=== PATIENT | female | born 1980 | race Caucasian/White ===

== ENCOUNTER 2020-08-08 09:00 | Outpatient (NON) | payer BC, SELFPAY ==
[2020-08-08 23:00] LABS: SARS-CoV-2 RNA PCR Negative
== END 2020-08-08 09:01 ==
PROVIDERS: PCP Family Medicine; Visit Provider Nurse Practitioner Adult Health
DX: R09.81 Nasal congestion (principal); Z20.822 Contact with and (suspected) exposure to COVID-19
CPT/HCPCS: C9803; U0003; U0005

== ENCOUNTER 2020-11-11 13:29 | Outpatient (CLI) | payer BC, SELFPAY ==
--- NOTE | 2020-11-11 15:04 | WPDPFTINT ---
PFT Procedure Performed PFT Procedure Performed Plethysmography (Lung Vol) Diffusing Cap (DLCO) Flow Vol Loop Spirometry w/o Bronchodil PFT Interpretation This is a pulmonary function test with spirometry, plethysmography and diffusing capacity. The test was performed and results interpreted in accordance with the 2019 and 2005 ATS/ERS Task Force guidelines respectively using the Global Lung Function Initiative-2012 reference equations. Patient demonstrated good effort and cooperation. Reproducibility criteria were met. The quality of the pre bronchodilator spirometry maneuver was Grade A. Findings: Spirometry: The contour the inspiratory and expiratory flow tracing are normal. The FVC is 3.34 L, 84% predicted. The FEV1 is 2.65 L, 84% predicted. The FEV1: FVC ratio 79%. Plethysmography: The total lung capacity is 4.93, 95% predicted. The functional residual capacity is 2.75 L, 96% predicted. The residual volume is 1.40 L, 88% predicted. Diffusing capacity: The absolute diffusion capacity is 19.9, 81% predicted. The diffusing capacity corrected for alveolar volume is 4.27, 90% predicted. Impression: The spirometry is normal without evidence of an obstructive abnormality. The lung volumes are normal. The diffusing capacity is normal. There are no prior studies for comparison
== END 2020-11-11 13:30 | disposition home or self-care (01) ==
PROVIDERS: PCP Family Medicine; Visit Provider Family Medicine
DX: R06.00 Dyspnea, unspecified (principal)
CPT/HCPCS: 94375; 94726; 94729

== ENCOUNTER → 2021-06-23 08:46 | Outpatient (CLI) | payer BC, SELFPAY ==
[2021-06-26 20:22] LABS: SARS-CoV-2 RNA PCR Negative
== END ==
PROVIDERS: PCP Family Medicine; Visit Provider Family Medicine
DX: R68.89 Other general symptoms and signs (principal); Z20.822 Contact with and (suspected) exposure to COVID-19
CPT/HCPCS: C9803; U0003; U0005

== ENCOUNTER → 2021-06-29 09:29 | Outpatient (CLI) | payer BC, SELFPAY ==
[2021-06-29 19:47] LABS: SARS-CoV-2 RNA PCR Negative
== END ==
PROVIDERS: PCP Family Medicine; Visit Provider Family Medicine
DX: R68.89 Other general symptoms and signs (principal); Z20.822 Contact with and (suspected) exposure to COVID-19
CPT/HCPCS: C9803; U0003; U0005

== ENCOUNTER → 2021-07-05 02:13 | Outpatient (CLI) | payer BC, SELFPAY ==
[2021-07-06 02:22] LABS: SARS-CoV-2 RNA PCR Negative
== END ==
PROVIDERS: PCP Family Medicine; Visit Provider Family Medicine
DX: R68.89 Other general symptoms and signs (principal); Z20.822 Contact with and (suspected) exposure to COVID-19
CPT/HCPCS: C9803; U0003; U0005

== ENCOUNTER 2022-05-30 12:12 | Emergency (ER) | payer OTHER, SELFPAY ==
[2022-05-30 12:28] VITALS: BP 125/64; PULSE 81; RESP 16; TEMP 37.1; O2SAT 100
--- NOTE | 2022-05-30 13:08 | ED.URI ---
HPI - URI/Sore Throat General Chief Complaint: Upper Respiratory Infection Stated Complaint: SINUS CONGESTION Time Seen by Provider: 05/30/22 13:03 Source: patient Mode of arrival: ambulatory Limitations: no limitations History of Present Illness HPI Narrative: Patient presents today with a 2.5-3 week history of nasal congestion and drainage with sinus pressure. She has been flushing her sinuses as well as taking ibuprofen without relief. Denies any history of sinus surgeries. She was on a Z-Krishan a few months ago for similar symptoms. Related Data Home Medications Medication Instructions Recorded Confirmed trazodone 100 mg tablet 100 mg PO DAILY 05/30/22 05/30/22 Allergies Allergy/AdvReac Type Severity Reaction Status Date / Time No Known Allergies Allergy Mild Verified 05/30/22 13:09 Review of Systems Review of Systems: CONSTITUTIONAL: Denies body aches, fever, chills, or sweats. EYES: Denies visual changes, redness, or discharge. ENT: Denies rhinorrhea, sore throat, or otalgia.+ nasal congestion, sinus pressure and drainage CARDIOVASCULAR: Denies chest pain, palpitations, or edema. RESPIRATORY: Denies cough or dyspnea. GASTROINTESTINAL: Denies abdominal pain, nausea, vomiting, or diarrhea. GENITOURINARY: Denies dysuria or hematuria. SKIN: Denies rash, itching, or wounds. MUSCULOSKELETAL: Denies back pain, joint pain, or myalgia. NEUROLOGIC: Denies headache, numbness, tingling, or weakness. PSYCH: Denies depression or anxiety. [facility] Family History Family History Father Hypertension Mother Hypertension Grandparent Family history of malignant neoplasm of male breast Social History Social History Smoking status: Light tobacco smoker Second hand tobacco smoke exposure: No Smoking end date: 07/08/13 Alcohol intake: current Comments At time of signature, I have reviewed and agree with nursing past medical, surgical, social and family history unless otherwise noted. Please see nursing chart for further information. There is no relevant family history pertinent to the presenting complaint Exam Narrative: GENERAL: Well-appearing, well-nourished, and in no acute distress. HEAD: Normocephalic, atraumatic. EYES: EOMI. No redness or drainage. Conjunctivae normal. ENT: Mucous membranes pink and moist. Nares congested. Bilateral erythematous and swollen nasal turbinates small purulent discharge. Bilateral frontal and maxillary sinus tenderness. TMs normal bilaterally. Throat normal. Uvula midline. NECK: Normal AROM. Supple. No lymphadenopathy. CHEST: No respiratory distress. Clear to auscultation. HEART: Regular rate and rhythm. No murmur appreciated. Normal peripheral pulses. EXTREMITIES: Normal range of motion. No edema. SKIN: Warm, dry, no rash. Capillary refill normal. Normal skin turgor. NEURO: No focal deficits. Alert and oriented x3. Gait steady. PSYCH: Normal affect. No signs of depression or anxiety. Course Course Level of Care: Express Care Visit Vital Signs Vital signs: Vital Signs Temperature 98.8 F 05/30/22 12:28 Pulse Rate 81 05/30/22 12:28 Respiratory Rate 16 05/30/22 12:28 Blood Pressure 125/64 05/30/22 12:28 Pulse Oximetry 100 05/30/22 12:28 Oxygen Delivery Room Air 05/30/22 12:28 Temperature 98.8 F 05/30/22 12:28 Pulse Rate 81 05/30/22 12:28 Respiratory Rate 16 05/30/22 12:28 Blood Pressure 125/64 05/30/22 12:28 Pulse Oximetry 100 05/30/22 12:28 Oxygen Delivery Room Air 05/30/22 12:28 Reviewed. Pt has been instructed to follow up with her PCP regarding her elevated blood pressure today. MDM - URI/Sore Throat Differential Diagnosis Differential diagnosis: Likely upper respiratory infection, sinusitis and viral infection Critical Care Time Critical Care Time Critical Care Time: No Discharge Plan
== END 2022-05-30 13:15 | disposition home or self-care (01) ==
PROVIDERS: Emergency Provider Nurse Practitioner; PCP Family Medicine
DX: J01.90 Acute sinusitis, unspecified (principal); Z87.891 Personal history of nicotine dependence
CPT/HCPCS: 99213; G0463

== ENCOUNTER 2022-10-01 19:24 | Observation (INO) | payer OTHER, SELFPAY ==
--- NOTE | ~2022-10-01 | US_ITS ---
EXAMINATION: US pelvic complete w TV DATE: 10/01/2022 22:18 INDICATION: Left lower quadrant pain TECHNIQUE: Multiple transabdominal and endovaginal sonographic images of the pelvis were obtained. COMPARISON: None. FINDINGS: The uterus measures 7.8 x 4.2 x 5.1 cm. The endometrial complex measures 13 mm. The right o vary measures 4.0 x 2.7 x 1.9 cm and contains a 1.2 cm corpus luteum. The left ovary measures approxi mately 5.4 x 3.9 x 4.1 cm. There is a complex fluid collection of the left adnexa with cystic and tub ular spaces. There is associated increased vascularity of the left adnexa. There is a small amount of free fluid in the pelvis. IMPRESSION: 1. Findings suspicious for left tubo-ovarian abscess. FURNITURE ASSEMBLER AND INSTALLER evaluation is recommended. Reviewed, dictated and finalized at location F. IMPRESSION: 1. Findings suspicious for left tubo-ovarian abscess. FURNITURE ASSEMBLER AND INSTALLER evaluation is recomme nded.
--- NOTE | ~2022-10-01 | CT_ITS ---
EXAMINATION: CT abdomen pelvis w con INDICATION: Left lower quadrant pain TECHNIQUE: Computed tomographic images of the abdomen and pelvis were obtained after the administrati on of 100 cc of Omnipaque 350 intravenous contrast. The dose-length product (DLP) was 775.34 mGy-cm. Automated exposure control and iterative reconstruction technique were employed. COMPARISON: None available FINDINGS: The lung bases are clear. The heart size is normal. The liver, spleen, pancreas, gallbladde r, and adrenal glands are normal. There is a 2 mm nonobstructing stone of the left kidney. The right kidney is unremarkable. There is a complex cystic collection in the left adnexa measuring approximate ly 5.1 x 3.3 cm. A corpus luteum is noted in the right ovary. There is a small amount of free fluid t racking into the left retroperitoneum. There is also a small volume of pelvic ascites. No pathologica lly enlarged abdominal or pelvic lymph nodes are identified. No free intraperitoneal gas or evidence of bowel obstruction. A large volume of colonic stool is present. IMPRESSION: 1. CT findings suspicious for tubo-ovarian abscess on the left. Ultrasound results pending. RAILROAD CAR REPAIR SUPERVISOR evalu ation is recommended. Reviewed, dictated and finalized at location F. IMPRESSION: 1. CT findings suspicious for tubo-ovarian abscess on the left. Ultrasound resu lts pending. RAILROAD CAR REPAIR SUPERVISOR evaluation is recommended.
[2022-10-01 21:04] VITALS: BP 131/91; PULSE 84; RESP 20; O2SAT 98
--- NOTE | 2022-10-01 21:34 | ED.ABDPAIN ---
HPI - Abdominal Pain General Chief Complaint: Abdominal Pain Stated Complaint: lower abdominal pain and rectal pain Time Seen by Provider: 10/01/22 21:05 History of Present Illness HPI narrative: 41-year-old female reports for evaluation of suprapubic and left lower quadrant pain x3 days, and rectal pain that started today. Patient reports 3 days ago she experienced intermittent sharp left lower quadrant pain. She reported the sharp pains subsided, but she continued to have a dull ache in her LLQ and suprapubic region. States she had an episode of sharp pain came back today that caused her to double over, then subsided again, but she continues to still have a dull ache. She is unable to tell me how long the sharp pain lasted because she was unaware of time due to intense pain, but it felt like forever. She reports nausea and body aches that started today and 1 episode of diarrhea yesterday. She reports intermittent sharp rectal pains that started today as well, worse with sitting. She has not had a BM today, therefore not sure if pain is worse with BM. Denies urinary complaints, back pain, rectal bleeding, melena, vomiting, vaginal discharge, vaginal bleeding, CP, SOB, fever, chills, concern for STDs. No history of abdominal surgeries other than c section. LMP ~21 days ago. Related Data Home Medications Medication Instructions Recorded Confirmed trazodone 100 mg tablet 100 mg PO DAILY 05/30/22 10/02/22 Allergies Allergy/AdvReac Type Severity Reaction Status Date / Time No Known Allergies Allergy Mild Verified 10/01/22 19:24 Review of Systems Review of Systems: CONSTITUTIONAL: Denies fever, chills EYES: Denies visual changes, redness, or discharge. ENT: Denies rhinorrhea, congestion, sore throat, or otalgia. CARDIOVASCULAR: Denies chest pain, palpitations, or edema. RESPIRATORY: Denies cough or dyspnea. GASTROINTESTINAL: See HPI GENITOURINARY: Denies dysuria or hematuria. SKIN: Denies rash or itching. MUSCULOSKELETAL: Denies back pain, joint pain, or myalgia. NEUROLOGIC: Denies headache, numbness, dizziness, or weakness. PSYCHIATRIC: Denies anxiety or depression. [facility] Family History Family History Father Hypertension Mother Hypertension Grandparent Family history of malignant neoplasm of male breast Social History Social History Smoking packs per day: 0.5 Smoking cigarettes per day: 10.0 Years smoked: 20 Smoking pack-years: 10.00 Smoking status: Current every day smoker Tobacco type: cigarettes Second hand tobacco smoke exposure: No Smoking end date: 07/08/13 Alcohol intake: never Substance use: never Lack of Transportation: No Lack of Food: Never True Current Housing: I Have Housing Concerned About Future Housing: No Difficulty Paying Gas/Electric Bills: No Difficulty Paying for Meds: No Currently Unemployed: No Education: Associate Degree Difficulty w/ Childcare or Family Care: No Spiritual care concerns: No Exam Narrative: GENERAL: Well-appearing, well-nourished, and in no acute distress. Patient resting comfortably in the bed. HEAD: Normocephalic, atraumatic. EYES: PERRLA and EOMI. ENT: Nares clear, no rhinorrhea or epistaxis. Mucous membranes moist. Oropharynx without tonsillar hypertrophy exudate or other lesions. NECK: Supple. No adenopathy or masses. CHEST: Clear to auscultation. No respiratory distress. No wheezes rales or rhonchi HEART: Regular rate and rhythm. No murmur heard. Normal peripheral pulses. ABDOMEN: Soft, nondistended, normal active bowel sounds. Tenderness with deep palpation to left lower quadrant. Tenderness and guarding to suprapubic region with deep palpation. Negative Tapia's, McBurney's, psoas sign, heeltap. No CVA tenderness. Rectal exam w/o gross hematuria. No internal or external hemorrhoids appreciated. No areas of f
[2022-10-01 21:39] LABS: Basophils Absolute Auto 0.1 K/mm3 (0.0-0.1); Basophils Percent Auto 0.4 % (0.2-1.2); Eosinophils Absolute Auto 0.2 K/mm3 (0-0.3); Eosinophils Percent Auto 1.5 % (0-4.4); Hematocrit 40.3 % (37.0-47.0); Hemoglobin 13.6 g/dL (12.0-15.0); Immature Granulocyte Absolute 0.06 K/mm3 (0.00-0.031); Immature Granulocyte Percent A 0.5 % (0-0.5); Lymphocytes Absolute Auto 2.34 K/mm3 (0.9-3.2); Lymphocytes Percent Auto 18.2 % (18.3-44.2); Mean Corpuscular HGB Conc 33.7 g/dl (32-36); Mean Corpuscular Hemoglobin 32.5 pg (26-34); Mean Corpuscular Volume 96.2 fl (80-100); Mean Platelet Volume 9.7 fl (7.4-10.4); Monocytes Absolute Auto 0.9 K/mm3 (0.1-0.6); Monocytes Percent Auto 7.1 % (2.6-8.5); Neutrophils Absolute Auto 9.3 K/mm3 (1.3-6.7); Neutrophils Percent Auto 72.3 % (45.5-73.1); Platelet Count Result 255 k/mm3 (150-375); Red Blood Count 4.19 M/mm3 (4.2-5.4); Red Cell Distribution Width 11.9 % (11.5-14.5); White Blood Count 12.9 K/mm3 (4.5-10.0)
[2022-10-01 21:45] LABS: Alanine Aminotransferase 41 U/L (6-35); Albumin Level 3.9 g/dL (3.5-5.1); Alkaline Phosphatase 76 U/L (38-126); Anion Gap 6 mmol/L (8-16); Aspartate Amino Transferase 27 U/L (14-36); Bilirubin,Total 0.5 mg/dL (0.2-1.3); Blood Urea Nitrogen 12 mg/dL (7-17); Calcium 8.2 mg/dL (8.4-10.2); Carbon Dioxide 27 mmol/L (22-30); Chloride 103 mmol/L (98-107); Estimated CRCL calculation 101 ml/min; Estimated Glomerular Filt Rate > 60; Glucose 85 mg/dL (65-110); Lipase 32 U/L (23-300); Potassium 4.1 mmol/L (3.4-5.0); Sodium 136 mmol/L (137-145)
[2022-10-01 21:58] LABS: Appearance Urine Cloudy (Clear); Bacteria Urine 2+ /hpf; Bilirubin Urine 1+ (Negative); Blood Urine Negative (Negative); Color Urine Dark Yellow (Yellow); Glucose Urine UA Negative (Negative); Ketones Urine Trace mg/dL (Negative); Leukocyte Esterase Ur Trace LEU/UL (Negative); Mucus Urine Present /lpf; Need Manual Microscopic Reviewed; Nitrate Urine Negative (Negative); Non Pathogenic Casts 0-2; Protein Urine 1+ mg/dL (Negative); Squamous Epithelial Cell Urine Few /hpf (Few); WBC Urine 0-5 /hpf
[2022-10-01 21:59] LABS: Add Urine Microscopic? YES; Specific Grav Ur 1.044 (1.001-1.035)
--- NOTE | 2022-10-01 22:14 | PC.NURSE ---
Pt reports intermittent LLQ pain that started as mild on Saturday and has progressively gotten worse over the weekend. She also developed constant, sharp rectal pain. Pt reports her last bowel movement was yesterday and it was diarrhea. She denies any blood in her stool. +Nausea but no vomiting. She also c/o bodyaches. Denies known fevers, urinary symptoms, or vaginal discharge.
[2022-10-01 22:32] VITALS: BP 150/77; PULSE 88; RESP 16; O2SAT 100
[2022-10-01] MEDS: ONDANSETRON INJ 4 MG/2 ML VIAL IV PUSH (22:33)
[2022-10-01] MEDS: SODIUM CHLORIDE 0.9% IV 1,000 ML 999 ML IV CONT (22:33)
[2022-10-01] MEDS: KETOROLAC 30 MG/ML VIAL (*BKC) IV PUSH (22:34)
[2022-10-01 22:54] LABS: Lactic Acid Reflex 0.6 mmol/L (0.7-2.0)
[2022-10-02] MEDS: metroNIDAZOLE 250 MG TABLET 500 MG PO ×3 (00:22→21:06)
[2022-10-02] MEDS: DOXYCYCLINE HYCLATE 100 MG TABLET PO ×3 (00:22→21:06)
[2022-10-02] MEDS: cefoTEtan DISODIUM INJ 2 GM in DEXTROSE 5% IN WATER 50 ML IVPB ×3 (00:24→21:07)
[2022-10-02 00:50] VITALS: BP 133/82; PULSE 84; RESP 18; O2SAT 100
[2022-10-02] MEDS: ONDANSETRON INJ 4 MG/2 ML VIAL IV PUSH ×3 (00:59→20:02)
--- NOTE | 2022-10-02 01:29 | ADMGEN ---
This patient, Kimber Brown, was admitted to [facility] Surg Room 300-01. Patient/family oriented to hospital policies and general routines including ID bracelet, bed and alarms, visiting hours, pain management, procedures, bathroom and other care routines, personal items, smoking policy, room service/diet, and visiting hours. Information on how to activate the Rapid Response Team has been discussed. Patient/Family are encouraged to report perceived risks to care and to ask questions if they do not understand what they are told or what they should do.
[2022-10-02 01:52] VITALS: BP 129/83; PULSE 79; RESP 16; TEMP 36.6; O2SAT 100
[2022-10-02 02:30] VITALS: BMI 30.9
[2022-10-02 04:39] VITALS: BP 100/49; PULSE 74; RESP 16; TEMP 36.7; O2SAT 98
[2022-10-02] MEDS: KETOROLAC 30 MG/ML VIAL (*BKC) IV PUSH (04:55)
[2022-10-02 14:00] VITALS: BP 108/68; PULSE 74; RESP 20; TEMP 36.4; O2SAT 99
[2022-10-02] MEDS: NICOTINE (*PBKC) 14 MG PATCH 1 PATCH TRANSDERM (14:33)
[2022-10-02] MEDS: ACETAMINOPHEN 500 MG TABLET PO (14:34)
[2022-10-02] MEDS: traZODone HCL 50 MG TABLET 100 MG PO (21:06)
[2022-10-02 21:50] VITALS: BP 127/68; PULSE 72; RESP 16; TEMP 36.1; O2SAT 100
--- NOTE | 2022-10-03 03:09 | PM.IMHP ---
H&P: HPI History of Present Illness Date/Time: 10/02/22 1000 Chief Complaint: Pelvic pain Narrative: She presented to ED yesterday with complaints of increasing pelvic pain that had started a few days. She had a similar pain in the area a few months ago that lasted a few hours. In ED CT and pelvic ultrasound showed possible TOA. She denies any history of STI or recent instrumentation. She denies abnormal vaginal discharge or odor. No history of PID or chl/gonorrhea. She has a history of vaginal ph issues. She was nauseous in ED and required antiemetic which improved symptoms. She states her pelvic pressure and rectal pressure are better after antibiotics started. She does have a headache and history of headaches. Review of Systems Review of Systems: All systems reviewed & are unremarkable except as noted in HPI and below Constitutional: Constitutional: Reports no additional constitutional complaints Eyes: Eyes: Reports no additional eye complaints Cardiovascular: Cardiovascular: Reports no additional cardiovascular complaints Respiratory: Respiratory: Reports no additional respiratory complaints Gastrointestinal: Gastrointestinal: Reports no additional gastrointestinal complaints Genitourinary: Genitourinary: Reports no additional female genitourinary complaints and Reports as per HPI Integumentary/Breasts: Skin/Breast: Reports system reviewed and no additional complaints, except as docu Neurologic: Reports system reviewed and no additional complaints, except as documented Psychiatric: Psychiatric: Reports no additional psychiatric complaints Hematologic/Lymphatic: Hematologic/Lymphatic: Reports no additional hematologic/lymphatic complaints [facility] Family History Family History Father Hypertension Mother Hypertension Grandparent Family history of malignant neoplasm of male breast Social History Social History Smoking packs per day: 0.5 Smoking cigarettes per day: 10.0 Years smoked: 20 Smoking pack-years: 10.00 Smoking status: Current every day smoker Tobacco type: cigarettes Second hand tobacco smoke exposure: No Smoking end date: 07/08/13 Alcohol intake: never Substance use: never Lack of Transportation: No Lack of Food: Never True Current Housing: I Have Housing Concerned About Future Housing: No Difficulty Paying Gas/Electric Bills: No Difficulty Paying for Meds: No Currently Unemployed: No Education: Associate Degree Difficulty w/ Childcare or Family Care: No Spiritual care concerns: No Meds Home Medications and Allergies Home Medications Medication Instructions Recorded Confirmed Type trazodone 100 mg tablet 100 mg PO DAILY 05/30/22 10/02/22 History Allergies Allergy/AdvReac Type Severity Reaction Status Date / Time No Known Allergies Allergy Mild Verified 10/01/22 19:24 Vital Signs Vital Signs - 24 hr 10/02/22 04:39 10/02/22 09:18 10/02/22 14:00 Temperature 98.1 F 97.6 F Pulse Rate 74 74 Respiratory Rate 16 20 Blood Pressure 100/49 L 108/68 Pulse Oximetry 98 99 Oxygen Delivery Room Air 10/02/22 21:50 Temperature 97.0 F L Pulse Rate 72 Respiratory Rate 16 Blood Pressure 127/68 Pulse Oximetry 100 Oxygen Delivery Exam Const: General: comfortable and no acute distress Orientation/consciousness: oriented to person, oriented to place and oriented to time Eyes: General: appearance normal, both eyes and all related structures Neck: Neck: normal visual inspection Resp: Effort & Inspection: normal respiratory effort GI: Inspection: normal to inspection Other: minimal lower abdominal tenderness, no guarding or rebound Skin: General skin exam: normal color Neuro: General: oriented to person, oriented to place and oriented to time Psych: Appearance: grossly normal Assessment and Plan Assess
[2022-10-03 06:18] LABS: Hematocrit 36.2 % (37.0-47.0); Hemoglobin 12.4 g/dL (12.0-15.0); Mean Corpuscular HGB Conc 34.3 g/dl (32-36); Mean Corpuscular Hemoglobin 32.9 pg (26-34); Mean Platelet Volume 9.9 fl (7.4-10.4); Platelet Count Result 250 k/mm3 (150-375); Red Blood Count 3.77 M/mm3 (4.2-5.4); Red Cell Distribution Width 11.6 % (11.5-14.5); White Blood Count 9.4 K/mm3 (4.5-10.0)
[2022-10-03 06:31] VITALS: BP 98/62; PULSE 60; RESP 16; TEMP 36.1; O2SAT 100
[2022-10-03] MEDS: cefoTEtan DISODIUM INJ 2 GM in DEXTROSE 5% IN WATER 50 ML IVPB (08:10)
[2022-10-03] MEDS: DOXYCYCLINE HYCLATE 100 MG TABLET PO (08:11)
[2022-10-03] MEDS: metroNIDAZOLE 250 MG TABLET 500 MG PO (08:11)
[2022-10-03] MEDS: NICOTINE (*PBKC) 14 MG PATCH 1 PATCH TRANSDERM (08:11)
[2022-10-03] MEDS: ACETAMINOPHEN 500 MG TABLET PO (08:19)
[2022-10-03] MEDS: ONDANSETRON INJ 4 MG/2 ML VIAL IV PUSH (08:20)
--- NOTE | 2022-10-03 08:51 | PM.GYNPNOP ---
PHARMACEUTICAL SPECIALTY REPRESENTATIVE - A/P Assessment and plan (1) Left tubo-ovarian abscess: Code(s): N70.93 - Salpingitis and oophoritis, unspecified Status: Acute Assessment and Plan: clinically improved. Minimal pain. Will discharge home on antibiotics. Will also send home with tramadol for pain and Zofran. She was instructed to follow up to call for an appointment for 3 week follow-up. Call if she has any increasing pain or fevers. Time Spent With Patient Time: Total time spent is greater than 50% in coordination of care (as documented) at patient's floor/unit and/or counseling patient: Time with patient: less than 15 minutes PHARMACEUTICAL SPECIALTY REPRESENTATIVE- PN:Subj Post-Op Subjective Date/time seen: 10/03/22 08:51 Interval history: She states her pain is 1/10. She has been intermittetly nauseated. She is tolerating regular foods. She does have a history of reflux. Exam Const: General: no acute distress Resp: Effort & Inspection: normal respiratory effort GI: Inspection: normal to inspection Other: Soft mild lower abdominal tenderness left greater than right no guarding no rebound Neuro: General: oriented to person, oriented to place and oriented to time Extrem: General: normal to inspection Psych: Appearance: grossly normal PHARMACEUTICAL SPECIALTY REPRESENTATIVE - PN: Obj Data Vital Signs Vital Signs: Vital Signs - 24 hr 10/02/22 09:18 10/02/22 14:00 10/02/22 21:50 Temperature 97.6 F 97.0 F L Pulse Rate 74 72 Respiratory Rate 20 16 Blood Pressure 108/68 127/68 Pulse Oximetry 99 100 Oxygen Delivery Room Air 10/03/22 06:31 Temperature 97.0 F L Pulse Rate 60 Respiratory Rate 16 Blood Pressure 98/62 L Pulse Oximetry 100 Oxygen Delivery Intake/Output Intake/Output: Intake & Output 09/30/22 10/01/22 10/02/22 10/03/22 23:59 23:59 23:59 23:59 Intake Total 1000 1475 Balance 1000 1475 Meds/Results Medications: Active Medications Generic Name Dose Route Start Last Admin Trade Name Freq PRN Reason Stop Dose Admin Acetaminophen 500 mg 10/02/22 14:03 10/03/22 08:19 Acetaminophen 500 Mg Tablet PO 500 mg Q4H PRN Administration Mild Pain (1-3) or Fever Doxycycline Hyclate 100 mg 10/02/22 09:00 10/03/22 08:11 Doxycycline Hyclate 100 Mg Tablet PO 100 mg Q12HR ASHLEY Administration Cefotetan Disodium 2 gm/ 50 mls @ 100 mls/hr 10/02/22 09:00 10/03/22 08:10 Dextrose IVPB 100 mls/hr Q12HR ASHLEY Administration Ketorolac Tromethamine 10 mg 10/02/22 14:06 Ketorolac 10 Mg Tablet PO Q6H PRN Pain Rated 4-6 Metronidazole 500 mg 10/02/22 09:00 10/03/22 08:11 Metronidazole 250 Mg Tablet PO 500 mg Q12HR ASHLEY Administration Morphine Sulfate 4 mg 10/01/22 23:56 Morphine Sulfate (*Crx) 4 Mg/Ml Inj IV PUSH Q2H PRN Pain Rated 7-10 Nicotine 1 patch 10/02/22 14:10 10/03/22 08:11 Nicotine (*Pbkc) 14 Mg Patch TRANSDERM 1 patch QAM ASHLEY Administration Ondansetron HCl 4 mg 10/01/22 23:56 10/03/22 08:20 Ondansetron Inj 4 Mg/2 Ml Vial IV PUSH 4 mg Q4H PRN Administration Nausea Trazodone HCl 100 mg 10/02/22 21:00 10/02/22 21:06 Trazodone Hcl 50 Mg Tablet PO 100 mg HS ASHLEY Administration Radiology Results: ITS Impressions Abdomen/Pelvis CT 10/01/22 22:25 IMPRESSION: 1. CT findings suspicious for tubo-ovarian abscess on the left. Ultrasound results pending. PHARMACEUTICAL SPECIALTY REPRESENTATIVE evaluation is recommended. Pelvic/Transvag US 10/01/22 22:30 IMPRESSION: 1. Findings suspicious for left tubo-ovarian abscess. PHARMACEUTICAL SPECIALTY REPRESENTATIVE evaluation is recommended. Labs 10/03/22 05:15 10/01/22 21:31 Labs: Laboratory Results - last 24 hr 10/01/22 10/03/22 23:49 05:15 WBC 9.4 RBC 3.77 L Hgb 12.4 Hct 36.2 L MCV 96.0 MCH 32.9 MCHC 34.3 RDW 11.6 Plt Count 250 MPV 9.9 Trichomonas Direct ID Cancelled
--- NOTE | 2022-10-15 09:19 | PM.DS ---
DS: Admitting Diagnosis Discharge Date 10/03/22 Admitting Diagnosis Pelvic pain Tuboovarian abscess DS: Discharge Diagnosis Discharge Diagnosis (1) Pelvic pain: Code(s): R10.2 - Pelvic and perineal pain Status: Acute (2) Left tubo-ovarian abscess: Code(s): N70.93 - Salpingitis and oophoritis, unspecified Status: Acute DS: Summary Hospital Course Reason for hospitalization: Pelvic pain Hospital Course: She was admitted from the ED due to pelvic pain. She had an elevated WBC and imaging findings consistent with tuboovarian abscess. She was admitted and had IV and oral antibiotics for 48 hours. She was clinically improved with minimal abdominal pain and afebrile and was tolerating regular diet and the antibiotics. She was discharged to home on oral antibiotics. She was sent home on oral analesic medication also. Status at Discharge Functional status at discharge: independent ambulation Time Spent with Patient Time attestation: Total time spent providing and/or coordinating discharge services: Exam Const: General: comfortable and no acute distress Eyes: General: appearance normal, both eyes and all related structures Resp: Effort & Inspection: normal respiratory effort GI: Inspection: normal to inspection Other: soft, no guarding or rebound, minimal lower abdominal suprapubic tenderness Skin: General skin exam: normal color Neuro: General: oriented to person, oriented to place and oriented to time Extrem: General: normal to inspection Psych: Appearance: grossly normal Discharge Plan Discharge Attending physician on discharge: Castro Buckley Consulting providers: Gail Peng ; Damián Murphy Discharging Clinician: Castro Buckley Anticipated Discharge Date/Time: 10/03/22 08:50 Patient Disposition: Home, Self-Care Activity: may shower, no straining and pelvic rest Diet: regular Patient Instructions: Antibiotic Form, How to Stop Smoking (DC), Cigarette Smoking and Your Health (GEN) Stand Alone Forms: General Discharge Information Follow-up/Referrals: Castro Buckley MD [Physician] - 3 Weeks Discharge Medications: New metronidazole 250 mg Tablet 500 mg PO Q12HR Qty: 26 0RF doxycycline hyclate 100 mg Tablet 100 mg PO Q12HR Qty: 26 0RF tramadol 50 mg tablet 50 mg PO Q6H PRN (Reason: pain) Qty: 20 0RF ondansetron 4 mg Tablet,Disintegrating 4 mg PO Q6H PRN (Reason: Nausea And Vomiting) Qty: 20 0RF Continued trazodone 100 mg tablet 100 mg PO DAILY Date of admission: 10/01/22 23:56 Primary Care Provider: Naina,Michael Flores Admitting Provider: Castro Buckley Attending physician on admission: Castro Buckley Condition: Stable [facility] Discharge Billing [facility] Discharge Hospital Discharge: [id number] Hosp D/C 30 Min
== END 2022-10-03 12:05 | disposition home or self-care (01) ==
LOC: ANHED 23:55 → ANH3MEDSUR 10-02 00:35
PROVIDERS: Emergency Medicine; Admitting Provider Obstetrics & Gynecology; Emergency Provider Physician Assistant; PCP Family Medicine; Visit Provider Obstetrics & Gynecology
DX: N70.93 Salpingitis and oophoritis, unspecified (principal); R10.32 Left lower quadrant pain; R10.2 Pelvic and perineal pain; K62.89 Other specified diseases of anus and rectum; Z20.822 Contact with and (suspected) exposure to COVID-19; R11.0 Nausea; R19.7 Diarrhea, unspecified; F17.210 Nicotine dependence, cigarettes, uncomplicated; Z79.899 Other long term (current) drug therapy
CPT/HCPCS: 36415; 74177; 76830; 76856; 80053; 81001; 81025; 83605; 83690; 85025; 85027; 87040; 87070; 87491; 87591; 96361; 96365; 96367; 96374; 96375; 96376; 99285; A9270; G0378; J1885; J2405; J7030; Q9967

== ENCOUNTER → 2022-11-07 15:09 | Outpatient (CLI) | payer OTHER, SELFPAY ==
--- NOTE | ~2022-11-07 | US_ITS ---
Pelvic ultrasound. Clinical History: Salpingitis, oophoritis COMPARISON: 10/01/2022 Technique: Realtime transabdominal and transvaginal scanning of the pelvis was performed. Color flow Doppler and Doppler spectral analysis were performed. Findings: The uterus is anteverted, and measures 7.4 x 4.0 x 3.9 cm. The endometrial stripe has a th ickness of 6 mm. No focal mass is identified. The right ovary measures 2.4 x 1.5 x 1.7 cm. Small right ovarian cyst measures 1.5 cm in diameter. The left ovary measures 3.1 x 4.6 x 2.8 cm. Left ovarian cyst measures 2.9 x 2.2 x 2.5 cm, with diffu se low-level internal echoes. Possible small left hydrosalpinx. There is no evidence of free fluid in the cul de sac. Impression: Probable small left hydrosalpinx and 2.9 cm left ovarian cystic structure. Findings overall are decre ased in size/extent from prior exam, consistent with improving tubo-ovarian abscess. Reviewed, dictated and finalized at location . Impression: Probable small left hydrosalpinx and 2.9 cm left ovarian cystic structure. Find ings overall are decreased in size/extent from prior exam, consistent with impr oving tubo-ovarian abscess.
== END ==
PROVIDERS: PCP Family Medicine; Visit Provider Obstetrics & Gynecology
DX: N70.93 Salpingitis and oophoritis, unspecified (principal)
CPT/HCPCS: 76830; 76856

== ENCOUNTER 2022-12-17 08:06 | Emergency (ER) | payer OTHER, SELFPAY ==
--- NOTE | 2022-12-17 08:15 | ED.SKABFB ---
HPI - Skin/Abscess/Foreign Bdy General Chief complaint: Skin/Abscess/Foreign Body Stated complaint: infected cyst Time Seen by Provider: 12/17/22 08:15 Source: patient, RN notes reviewed and old records reviewed Mode of arrival: ambulatory Limitations: no limitations History of Present Illness HPI narrative: 41-year-old female presents to the [facility] with concerns an infected cyst to the abdomen. patient states that her friend tried to pop it last week, states it did get lip but better but over the last day or so has become red, more painful. She is unable to pop it herself. Onset (ago): week(s) (1) Related Data Home Medications Medication Instructions Recorded Confirmed trazodone 100 mg tablet 100 mg PO DAILY 05/30/22 12/17/22 famotidine 20 mg tablet 20 mg PO DAILY 12/17/22 12/17/22 Allergies Allergy/AdvReac Type Severity Reaction Status Date / Time No Known Allergies Allergy Mild Verified 12/17/22 08:26 Review of Systems Review of Systems: All systems reviewed & are unremarkable except as noted in HPI and below Constitutional: Constitutional: Reports no additional constitutional complaints Eyes: Eyes: Reports no additional eye complaints ENT: Reports system reviewed and no additional complaints, except as documented Cardiovascular: Cardiovascular: Reports no additional cardiovascular complaints, Denies chest pain and Denies dyspnea Respiratory: Respiratory: Reports no additional respiratory complaints, Denies chest congestion, Denies cough and Denies dyspnea Gastrointestinal: Gastrointestinal: Reports no additional gastrointestinal complaints, Denies abdominal pain, Denies nausea and Denies vomiting Musculoskeletal: Musculoskeletal: Reports no additional musculoskeletal complaints Integumentary/Breasts: Skin/Breast: Reports as per HPI, Reports furuncle and Reports erythema Neurologic: Reports system reviewed and no additional complaints, except as documented Psychiatric: Psychiatric: Reports no additional psychiatric complaints Allergic/Immunologic: Allergic/Immunologic: Reports no additional allergic/immunologic complaints [facility] Family History Family History Father Hypertension Mother Hypertension Grandparent Family history of malignant neoplasm of male breast Social History Social History Smoking packs per day: 0.5 Smoking cigarettes per day: 10.0 Years smoked: 20 Smoking pack-years: 10.00 Smoking status: Current every day smoker Tobacco type: cigarettes Second hand tobacco smoke exposure: No Alcohol intake: never Substance use: never Lack of Transportation: No Lack of Food: Never True Current Housing: I Have Housing Concerned About Future Housing: No Difficulty Paying Gas/Electric Bills: No Difficulty Paying for Meds: No Currently Unemployed: No Education: Associate Degree Difficulty w/ Childcare or Family Care: No Spiritual care concerns: No Comments At the time of my signature, I reviewed and agree with the nursing past medical, surgical, social, and family history. There is no relevant family history pertinent to the patient complaint. Exam Const: General: cooperative, healthy appearing, comfortable, no acute distress, well developed, alert and well nourished Nutritional Appearance: well nourished Orientation/consciousness: patient oriented x3 Limitations: no limitations HENMT: Head: normal to inspection Ears: hearing grossly normal bilaterally and external ears normal Face/Nose/Sinus: Normal external nose present, Normal nares present, Normal nasal mucous membranes and turbinates present and normal facial exam Face and sinus: normal facial exam Eyes: General: appearance normal, both eyes and all related structures Alignment and Position: alignment normal Periorbital: periorbital findings normal Pupils: Equal, round and re
[2022-12-17 08:16] VITALS: BP 115/59; PULSE 84; RESP 16; TEMP 36.7; O2SAT 100
== END 2022-12-17 08:44 | disposition home or self-care (01) ==
PROVIDERS: Emergency Provider Nurse Practitioner; PCP Family Medicine
DX: L02.211 Cutaneous abscess of abdominal wall (principal); F17.210 Nicotine dependence, cigarettes, uncomplicated
CPT/HCPCS: 10060; 87070; 87075; 87205; 99213; G0463

== ENCOUNTER 2023-01-13 09:49 | Inpatient (IN) | payer OTHER, SELFPAY ==
--- NOTE | ~2023-01-13 | CT_ITS ---
EXAMINATION: CT abdomen pelvis w con DATE: 01/13/2023 10:59 INDICATION: Left lower quadrant abdominal pain. TECHNIQUE: Computed tomography (CT) of the abdomen and pelvis was performed with 100 mL Omnipaque 350 intravenous contrast. Automated exposure control and iterative reconstruction technique were employe d. The dose-length product was 799.24 mGy-cm. COMPARISON: CT abdomen and pelvis 10/01/2022 FINDINGS: The visualized portions of the lung bases demonstrate mild atelectasis. No pleural effusion . The heart size is normal. No pericardial effusion. The liver, gallbladder, spleen, pancreas, adrena l glands, and kidneys are normal. There is left-sided hydrosalpinx. There is a 5.6 x 3.9 cm left tubo -ovarian abscess. There are no dilated loops of bowel. The appendix is normal. There are no pathologi av enlarged lymph nodes. There is no free intraperitoneal fluid. There is mild lumbar spondylosis. IMPRESSION: 1. Worsened left-sided tubo-ovarian abscess. Reviewed, dictated and finalized at location A.
--- NOTE | ~2023-01-13 | CT_ITS ---
EXAMINATION: CTA chest PE protocol DATE: 01/16/2023 05:01 INDICATION: Shortness of breath. TECHNIQUE: Computed tomography angiography (CTA) of the chest was performed with 100 mL Omnipaque-350 intravenous contrast timed to evaluate the pulmonary arteries. Coronal maximum intensity projection 3D-reconstructions were created by the technologist. Automated exposure control and iterative reconst ruction technique were employed. The dose-length product was 272.74 mGy-cm. COMPARISON: CT abdomen and pelvis 01/13/2023 FINDINGS: The lungs demonstrate mild atelectasis. No pleural effusion. The heart size is normal. No p ericardial effusion. There is no pulmonary embolus. There is free intraperitoneal gas, consistent wit h recent surgery. There is mild thoracic spondylosis. IMPRESSION: 1. No pulmonary embolus. Reviewed, dictated and finalized at location E. IMPRESSION: 1. No pulmonary embolus.
[2023-01-13 10:01] VITALS: BP 146/80; PULSE 84; RESP 16; TEMP 36.5; O2SAT 100
[2023-01-13] MEDS: SODIUM CHLORIDE 0.9% IV 1,000 ML 999 ML IV CONT (10:17)
[2023-01-13] MEDS: ONDANSETRON INJ 4 MG/2 ML VIAL IV PUSH ×2 (10:18→19:13)
--- NOTE | 2023-01-13 10:18 | ED.ABDPAIN ---
HPI - Abdominal Pain General Chief Complaint: Abdominal Pain <MERLINE Hurley Last Filed: 01/13/23 19:49> Stated Complaint: abdominal pain <MERLINE Hurley Last Filed: 01/13/23 19:49> Time Seen by Provider: 01/13/23 10:01 <MERLINE Hurley Last Filed: 01/13/23 19:49> History of Present Illness HPI narrative: 42-year-old female reports for evaluation of left upper and lower abdominal pain since yesterday. Patient states the symptoms started with her feeling a pulse in her abdomen, then she began developing a sharp pain in the left side of her abdomen which has been persistent since. She reports nausea but denies emesis. Last bowel movement 2 days ago was normal. She denies chest pain, shortness of breath, fever, back pain, dysuria or hematuria, cough, vaginal discharge or bleeding, concern for STDs. LMP 34 weeks ago. <MERLINE Hurley Last Filed: 01/13/23 19:49> Related Data Home Medications: Home Medications Medication Instructions Recorded Confirmed trazodone 100 mg tablet 100 mg PO DAILY 05/30/22 12/17/22 famotidine 20 mg tablet 20 mg PO DAILY 12/17/22 12/17/22 <MERLINE Hurley Last Filed: 01/13/23 19:49> Allergies/Adverse Reactions: Allergies Allergy/AdvReac Type Severity Reaction Status Date / Time No Known Allergies Allergy Mild Verified 01/13/23 09:49 <MERLINE Hurley Last Filed: 01/13/23 19:49> Review of Systems Review of Systems: CONSTITUTIONAL: Denies fever, chills EYES: Denies visual changes, redness, or discharge. ENT: Denies rhinorrhea, congestion, sore throat, or otalgia. CARDIOVASCULAR: Denies chest pain, palpitations, or edema. RESPIRATORY: Denies cough or dyspnea. GASTROINTESTINAL: See HPI GENITOURINARY: Denies dysuria or hematuria. SKIN: Denies rash or itching. MUSCULOSKELETAL: Denies back pain, joint pain, or myalgia. NEUROLOGIC: Denies headache, numbness, dizziness, or weakness. PSYCHIATRIC: Denies anxiety or depression. <Gail Peng PA-C - Last Filed: 01/13/23 19:49> [facility] Surgical History Surgical History: Surgical History (Updated 01/16/23 @ 10:03 by Castro Buckley MD) History of section <Gail Peng PA-C - Last Filed: 01/13/23 19:49> Family History Family History: Family History Father Hypertension Mother Hypertension Grandparent Family history of malignant neoplasm of male breast <Gail Peng PA-C - Last Filed: 01/13/23 19:49> Social History Social History: Social History Smoking packs per day: 0.5 Smoking cigarettes per day: 10.0 Years smoked: 20 Smoking pack-years: 10.00 Smoking status: Current every day smoker Tobacco type: cigarettes Second hand tobacco smoke exposure: No Alcohol intake: never Substance use: never Lack of Transportation: No Lack of Food: Never True Current Housing: I Have Housing Concerned About Future Housing: No Difficulty Paying Gas/Electric Bills: No Difficulty Paying for Meds: No Currently Unemployed: No Education: Associate Degree Difficulty w/ Childcare or Family Care: No Spiritual care concerns: No <Gail Peng PA-C - Last Filed: 01/13/23 19:49> Exam Narrative: GENERAL: Well-appearing, in no acute distress. Patient resting comfortably in exam bed. She is pleasant and conversational. HEAD: Normocephalic EYES: PERRLA ENT: Nares clear. Mucous membranes moist. Oropharynx without tonsillar hypertrophy exudate or other lesions. NECK: Supple. CHEST: No respiratory distress. Clear to auscultation, no adventitious breath sounds. HEART: Regular rate and rhythm. No murmur heard. Normal peripheral pulses. ABDOMEN: Normal active bowel sounds. Abdomen soft with tenderness and guarding in the left lower quadrant. No overlying skin changes.
[2023-01-13 10:31] LABS: Basophils Absolute Auto 0.1 K/mm3 (0.0-0.1); Basophils Percent Auto 0.5 % (0.2-1.2); Eosinophils Absolute Auto 0.2 K/mm3 (0-0.3); Eosinophils Percent Auto 2.3 % (0-4.4); Hematocrit 42.2 % (37.0-47.0); Hemoglobin 14.6 g/dL (12.0-15.0); Immature Granulocyte Absolute 0.04 K/mm3 (0.00-0.031); Immature Granulocyte Percent A 0.4 % (0-0.5); Lymphocytes Absolute Auto 2.13 K/mm3 (0.9-3.2); Lymphocytes Percent Auto 21.6 % (18.3-44.2); Mean Corpuscular HGB Conc 34.6 g/dl (32-36); Mean Corpuscular Hemoglobin 32.6 pg (26-34); Mean Corpuscular Volume 94.2 fl (80-100); Mean Platelet Volume 9.6 fl (7.4-10.4); Monocytes Absolute Auto 0.6 K/mm3 (0.1-0.6); Monocytes Percent Auto 6.4 % (2.6-8.5); Neutrophils Absolute Auto 6.8 K/mm3 (1.3-6.7); Neutrophils Percent Auto 68.8 % (45.5-73.1); Platelet Count Result 276 k/mm3 (150-375); Red Blood Count 4.48 M/mm3 (4.2-5.4); Red Cell Distribution Width 11.9 % (11.5-14.5); White Blood Count 9.9 K/mm3 (4.5-10.0)
[2023-01-13 10:42] LABS: Appearance Urine Clear (Clear); Bacteria Urine None Seen /hpf; Bilirubin Urine Negative (Negative); Blood Urine Trace (Negative); Color Urine Yellow (Yellow); Glucose Urine UA Negative (Negative); Ketones Urine Negative (Negative); Leukocyte Esterase Ur Trace LEU/UL (Negative); Nitrate Urine Negative (Negative); Non Pathogenic Casts 0-2; Protein Urine Negative (Negative); Specific Grav Ur 1.017 (1.001-1.035); Squamous Epithelial Cell Urine Occasional /hpf (Few); Urobilinogen Urine 0.2 mg/dL (<2.0); WBC Urine 0-5 /hpf; pH Urine 7.5 (5.0-9.0)
[2023-01-13 10:51] LABS: Alanine Aminotransferase 28 U/L (6-35); Albumin Level 4.4 g/dL (3.5-5.1); Alkaline Phosphatase 84 U/L (38-126); Anion Gap 6 mmol/L (8-16); Aspartate Amino Transferase 28 U/L (14-36); Bilirubin,Total 0.6 mg/dL (0.2-1.3); Blood Urea Nitrogen 13 mg/dL (7-17); Calcium 9.2 mg/dL (8.4-10.2); Carbon Dioxide 27 mmol/L (22-30); Chloride 103 mmol/L (98-107); Estimated CRCL calculation 87 ml/min; Estimated Glomerular Filt Rate > 60; Glucose 98 mg/dL (65-110); Lipase 40 U/L (23-300); Potassium 4.1 mmol/L (3.4-5.0); Sodium 136 mmol/L (137-145)
[2023-01-13 10:53] LABS: Add Urine Microscopic? YES
[2023-01-13 10:57] LABS: Estimated CRCL calculation 87 ml/min; Estimated Glomerular Filt Rate > 60
[2023-01-13] MEDS: DOXYCYCLINE HYCLATE 100 MG TABLET PO ×2 (11:50→21:12)
[2023-01-13] MEDS: metroNIDAZOLE 250 MG TABLET 500 MG PO ×2 (11:51→21:13)
[2023-01-13] MEDS: KETOROLAC 15 MG/ML VIAL (*BKC) IV PUSH (11:51)
[2023-01-13 12:31] VITALS: BP 130/88; PULSE 84; RESP 16; O2SAT 99
[2023-01-13 13:15] VITALS: BP 120/64; PULSE 78; PULSE 84; RESP 14; RESP 16; TEMP 36.7; O2SAT 98; O2SAT 99
[2023-01-13] MEDS: NICOTINE (*PBKC) 14 MG PATCH 1 PATCH TRANSDERM (14:48)
[2023-01-13] MEDS: KETOROLAC 30 MG/ML VIAL (*BKC) IV PUSH ×2 (17:50→23:34)
[2023-01-13 19:00] VITALS: BP 111/65; PULSE 74; RESP 18; TEMP 36.8
[2023-01-13] MEDS: ACETAMINOPHEN 325 MG TABLET 650 MG PO (19:09)
[2023-01-14] VITALS (18 sets, daily range): BP systolic 97–129; BP diastolic 52–79; PULSE 55–80; RESP 14–20; TEMP 36.4–36.9; O2SAT 94–100
[2023-01-14] MEDS: KETOROLAC 30 MG/ML VIAL (*BKC) IV PUSH ×2 (08:08→17:25)
[2023-01-14] MEDS: ONDANSETRON INJ 4 MG/2 ML VIAL IV PUSH ×2 (08:09→20:20)
[2023-01-14] MEDS: DOXYCYCLINE HYCLATE 100 MG TABLET PO ×2 (09:54→20:16)
[2023-01-14] MEDS: metroNIDAZOLE 250 MG TABLET 500 MG PO ×2 (09:54→20:14)
--- NOTE | 2023-01-14 10:23 | PM.IMHP ---
H&P: HPI History of Present Illness Date/Time: 01/14/23 10:23 Chief Complaint: Left-sided abdominal pain Narrative: Patient presented to the emergency department on 01/13 with complaint of increasing left abdominal pain. Has a history of chronic pelvic inflammatory disease with prior admission in September for possible TOA. She responded to antibiotics. She had a subsequent ultrasound which showed it was smaller. With recent admission to the ED she had a CT and showed increasing size of hydrosalpinx. Consistent with increasing tubo-ovarian abscess. She did not have an elevated white count she did not have any fevers or chills. She was admitted for tubo-ovarian abscess she was started on IV antibiotics. She still has some pain on the left side this morning. She has had previous irregular bleeding but this has improved from her last visit. Denies abnormal vaginal discharge itching or irritation. Review of Systems Review of Systems: All systems reviewed & are unremarkable except as noted in HPI and below Cardiovascular: Cardiovascular: Reports no additional cardiovascular complaints, Denies chest pain and Denies dyspnea Respiratory: Respiratory: Reports no additional respiratory complaints and Denies dyspnea Gastrointestinal: Gastrointestinal: Reports abdominal pain, Denies change in bowel habits, Denies diarrhea, Denies nausea and Denies vomiting Genitourinary: Genitourinary: Reports pelvic pain Musculoskeletal: Musculoskeletal: Reports back pain Integumentary/Breasts: Skin/Breast: Reports system reviewed and no additional complaints, except as docu Neurologic: Reports system reviewed and no additional complaints, except as documented [facility] Family History Family History Father Hypertension Mother Hypertension Grandparent Family history of malignant neoplasm of male breast Social History Social History Smoking packs per day: 0.5 Smoking cigarettes per day: 10.0 Years smoked: 20 Smoking pack-years: 10.00 Smoking status: Current every day smoker Tobacco type: cigarettes Second hand tobacco smoke exposure: No Alcohol intake: never Substance use: never Lack of Transportation: No Lack of Food: Never True Current Housing: I Have Housing Concerned About Future Housing: No Difficulty Paying Gas/Electric Bills: No Difficulty Paying for Meds: No Currently Unemployed: No Education: Associate Degree Difficulty w/ Childcare or Family Care: No Spiritual care concerns: No Meds Home Medications and Allergies Home Medications Medication Instructions Recorded Confirmed Type trazodone 100 mg tablet 100 mg PO DAILY 05/30/22 12/17/22 History cephalexin 500 mg capsule 500 mg PO Q8H 7 days #21 caps 12/17/22 Rx famotidine 20 mg tablet 20 mg PO DAILY 12/17/22 12/17/22 History Allergies Allergy/AdvReac Type Severity Reaction Status Date / Time No Known Allergies Allergy Mild Verified 01/13/23 09:49 Vital Signs Vital Signs - 24 hr 01/13/23 12:31 01/13/23 13:15 01/13/23 13:15 Temperature 98.0 F Pulse Rate 84 84 78 Respiratory Rate 16 16 14 Blood Pressure 130/88 120/64 Pulse Oximetry 99 99 98 Oxygen Delivery Room Air 01/13/23 19:10 01/13/23 19:00 01/14/23 00:03 Temperature 98.2 F 98.3 F Pulse Rate 74 72 Respiratory Rate 18 18 Blood Pressure 111/65 108/61 Pulse Oximetry Oxygen Delivery Room Air 01/14/23 00:09 01/14/23 03:50 01/14/23 07:36 Temperature 98.5 F 98.1 F Pulse Rate 61 66 Respiratory Rate 18 14 Blood Pressure 101/61 129/79 Pulse Oximetry 98 Oxygen Delivery Room Air Exam Const: Orientation/consciousness: oriented to person and oriented to place HENMT: Head: normal to inspection Eyes: General: appearance normal, both eyes and all related structures Resp: Effort & Inspection: normal respiratory effort Ausc
--- NOTE | 2023-01-14 12:25 | PC.NURSE ---
Pt. to OR.
[2023-01-14] MEDS: LACTATED RINGERS 1,000 ML 30 ML IV CONT ×2 (12:35→15:18)
--- NOTE | 2023-01-14 12:36 | WPDANESEPPF ---
Anes - Initial Pre Proc Eval Procedure: Operation Date: 01/14/23 14:00 Proposed Procedures p Laparoscopic Removal Of Left Tubal Ovarian Abscess,Removal Right Tube,Possible Bilateral Oopherectomy - Castro Buckley MD Date/Time: 01/14/23 12:36 Surgeon: Castro Buckley MD Pre Op Diagnosis: tubo ovarian abscess Patient Data Age: 42 Gender: F Height: 1.65 m Weight: 85 kg Last Vital Signs Temp 36.8 C 01/14/23 11:35 Pulse 66 01/14/23 11:35 Resp 16 01/14/23 11:35 BP 120/59 L 01/14/23 11:35 Pulse Ox 98 01/14/23 11:35 O2 Del Method Room Air 01/14/23 00:09 Allergies Allergy/AdvReac Type Severity Reaction Status Date / Time No Known Allergies Allergy Mild Verified 01/13/23 09:49 Home Medications Medication Instructions Recorded Confirmed Type trazodone 100 mg tablet 100 mg PO DAILY 05/30/22 12/17/22 History cephalexin 500 mg capsule 500 mg PO Q8H 7 days #21 caps 12/17/22 Rx famotidine 20 mg tablet 20 mg PO DAILY 12/17/22 12/17/22 History Patient hx anesthesia problems: none Family hx anesthesia problems: none Results Review: All pre-operative results and documents have been reviewed as part of the pre-operative evaluation. [facility] Surgical History Surgical History (Updated 01/14/23 @ 12:36 by Eder Armenta MD) History of section Family History Family History Father Hypertension Mother Hypertension Grandparent Family history of malignant neoplasm of male breast Social History Social History Smoking packs per day: 0.5 Smoking cigarettes per day: 10.0 Years smoked: 20 Smoking pack-years: 10.00 Smoking status: Current every day smoker Tobacco type: cigarettes Second hand tobacco smoke exposure: No Alcohol intake: never Substance use: never Lack of Transportation: No Lack of Food: Never True Current Housing: I Have Housing Concerned About Future Housing: No Difficulty Paying Gas/Electric Bills: No Difficulty Paying for Meds: No Currently Unemployed: No Education: Associate Degree Difficulty w/ Childcare or Family Care: No Spiritual care concerns: No Anes - Eval Final PreProcedure Day of Procedure 01/14/23 12:36 Patient weight: obese Heart: regular rate and rhythm Lungs: clear to auscultation Airway: Mallampati scale class II Neurological: alert and oriented Last oral intake: >/= 8 hours ASA classification: II Emergent: no Anesthetic plan: proceed Anesthesia type and monitoring: general ETT and standard monitoring Results Review: All pre-operative results and documents have been reviewed as part of the pre-operative evaluation. Informed Consent: The patient's anesthetic plan and its attendant risks and benefits were discussed with the patient/family/POA. Questions were solicited and answers provided to the satisfaction of the patient/family/POA.
--- NOTE | 2023-01-14 12:56 | WPDHPUPDATE1 ---
History and Physical Update Update Date/Time: 01/14/23 12:56 History and Physical has been reviewed, including an updated exam of the patient. There are NO changes in the patient's condition. Risks, benefits, and alternatives have been discussed and questions answered. Patient agrees to proceed with procedure.
[2023-01-14] MEDS: BUPivacaine HCL 0.5% 10 ML AMP 30 ML INFILTRATE (15:00)
--- NOTE | 2023-01-14 15:17 | PM.OP ---
Procedure Note - Brief Procedure Note - Brief Date of procedure: 01/14/23 tubo ovarian abscess Post-op diagnosis: Same Procedure performed: 1. Diagnostic laparoscopy 2. Exploratory laparotomy 3. Left salpingo-oophorectomy 4. Right salpingectomy 5. Cystoscopy Surgeon: Castro Buckley MD Anesthesia: GETA Estimated blood loss (mL): 80 Drains: No Packing: No Pathology: Yes (left fallopian tube and ovary adhesed, right fallopian tube) Complications: No immediate complications Condition: Stable Disposition: Floor
[2023-01-14] MEDS: SCOPOLAMINE 1.5 MG PATCH TRANSDERM (15:44)
[2023-01-14] MEDS: HALOPERIDOL LACTATE 5 MG/ML VIAL 1 MG IV PUSH (15:44)
[2023-01-14] MEDS: fentaNYL CITRATE INJ (*CRX) 100 MCG/2 ML VIAL 25 MCG IV PUSH ×8 (15:50→16:16)
[2023-01-14] MEDS: DEXTROSE 5%/0.45% SOD CHL 1,000 ML 125 ML IV CONT (17:24)
[2023-01-14] MEDS: NICOTINE (*PBKC) 14 MG PATCH 1 PATCH TRANSDERM (18:18)
[2023-01-14] MEDS: HYDROcodone/acetaminophen (*CRX) 5-325 MG TABLET 1 TAB PO ×2 (19:22→22:42)
[2023-01-14] MEDS: SENNA/DOCUSATE SODIUM TABLET 2 TAB PO (20:16)
[2023-01-14] MEDS: ARTIFICIAL TEARS OPHTH SOLN 15 ML BOTTLE 1 DROP EACH EYE (22:43)
[2023-01-15] VITALS (8 sets, daily range): BP systolic 90–132; BP diastolic 45–72; PULSE 57–68; RESP 14–18; TEMP 36.5–37.2; O2SAT 97–100
[2023-01-15] MEDS: HYDROcodone/acetaminophen (*CRX) 5-325 MG TABLET 1 TAB PO (02:24)
[2023-01-15] MEDS: DEXTROSE 5%/0.45% SOD CHL 1,000 ML 125 ML IV CONT (02:25)
[2023-01-15] MEDS: IBUPROFEN 600 MG TABLET PO (03:33)
[2023-01-15 05:41] LABS: Basophils Percent Auto 0.2 % (0.2-1.2); Eosinophils Percent Auto 0.1 % (0-4.4); Hematocrit 33.8 % (37.0-47.0); Hemoglobin 11.5 g/dL (12.0-15.0); Immature Granulocyte Percent A 0.6 % (0-0.5); Lymphocytes Absolute Auto 1.39 K/mm3 (0.9-3.2); Mean Corpuscular Hemoglobin 32.9 pg (26-34); Mean Corpuscular Volume 96.6 fl (80-100); Mean Platelet Volume 9.7 fl (7.4-10.4); Monocytes Percent Auto 5.9 % (2.6-8.5); Neutrophils Absolute Auto 14.9 K/mm3 (1.3-6.7); Neutrophils Percent Auto 85.2 % (45.5-73.1); Platelet Count Result 238 k/mm3 (150-375); Red Cell Distribution Width 11.9 % (11.5-14.5); White Blood Count 17.4 K/mm3 (4.5-10.0)
[2023-01-15] MEDS: HYDROcodone/acetaminophen (*CRX) 10-325 MG TABLET 1 TAB PO ×4 (06:32→20:20)
--- NOTE | 2023-01-15 06:32 | W.PM.PROC2 ---
Procedure Note - Detailed Date of Procedure 01/16/23 Pre-op Diagnosis tubo ovarian abscess, undesired fertility Post-op Diagnosis Other (Dilated fallopian tube, scarred tube and ovary, chronic PID.) Procedure Performed Diagnostic laparoscopy, exploratory laparotomy, excision of right fallopian tube and ovary, right salpingectomy, cystoscopy. Surgeon Castro Buckley MD Anesthesia General Indications H/o chronic PID, recently admitted for pain, hydrosalpinx on left increased. Findings left fallopian tube dilated and scarred with ovary, densely adhesed to pelvic sidewall and right side of uterus. Normal appearing ovary and right fallopian tube. There was no fluid collection in the pelvis, the affected tube was dilated, scarred and engorged. No pus in organs or inflammatory exudate. Description of Procedure After informed consent was obtained she was taken to the operating room and adequate general endotracheal anesthesia was administered. She was placed in low lithotomy position and an exam under anesthesia was performed. She was prepped and draped in sterile fashion. Attention was turned to the vagina speculum was inserted single-tooth tenaculum placed on the anterior lip of the cervix and acorn uterine manipulator was placed into the cervix. With sterile gloves attention was turned to the abdomen a vertical incision was made at the umbilicus after 0.5% Marcaine was injected subcutaneously. The Veress needle was inserted confirmation into the abdomen obtained with normal peritoneal pressures. A pneumoperitoneum of 15 mm per mercury was obtained. A 5 mm port was inserted under laparoscopic visualization. She was placed in Trendelenburg position. Attention was turned to the left side of the abdomen there were no abnormalities or scarring on the left side of the abdomen, 0.5% Marcaine was injected subcutaneously on the left side an incision was made and a 5 mm port was inserted under laparoscopic visualization. Attention was turned to the right side of the abdomen and 0.5% Marcaine was injected subcutaneously and a 10 mm program services assistant port was inserted under laparoscopic visualization. The pelvis was visualized the left tube was noted to be dilated and twisted and densely attached to the ovary and the pelvic sidewall. At this time decision was made to perform a laparotomy due to inability to see any of the pelvic sidewall or where the tube was attached. The laparoscopic ports were removed. An incision Pfannenstiel was made with the scalpel subcutaneous tissue was dissected down to the fascia fascia was incised in the midline with the scalpel and extended bilaterally with Mesa scissors . The fascia was from rectus muscle superiorly and inferiorly bluntly and sharply the midline was identified and grasped with clamps and incised sharply the peritoneal was entered the pelvic organs were visualized she was placed in mild Trendelenburg position laparotomy sponges were used to retract the colon the uterus was visualized. The uterine grasper was used to elevate the uterus. The dense adhesions on the left side of the pelvis with the tube and ovary were palpated these adhesions were bluntly dissected. The distal end of the fallopian tube was visualized and noted to be attached to the ovary which was adhesed to the broad ligament and side of the uterus the infundibulopelvic ligament was identified the fallopian tube proximally was ligated from the mesial salpinx more adhesions of the ovary from the broad ligament were lysed the fallopian tube and ovary and the infundibulopelvic ligament were ligated with LigaSure. Hemostasis at area was obtained with the cautery from the LigaSure there was an area on the sidewall that had mild oozing and 3 0 Vicryl was used for [id number] to obtain hemostasis. This was the area where the tube and ovary were dissected from bluntly from the pelvic sidewall. Cautery was also used for hemostasis and Surgiflo was used hemostasis
[2023-01-15] MEDS: NICOTINE (*PBKC) 14 MG PATCH 1 PATCH TRANSDERM (09:14)
[2023-01-15] MEDS: metroNIDAZOLE 250 MG TABLET 500 MG PO ×2 (09:14→20:19)
[2023-01-15] MEDS: DOXYCYCLINE HYCLATE 100 MG TABLET PO ×2 (09:15→20:20)
[2023-01-15] MEDS: KETOROLAC 30 MG/ML VIAL (*BKC) IM (12:07)
[2023-01-15] MEDS: ONDANSETRON INJ 4 MG/2 ML VIAL IV PUSH (13:41)
[2023-01-15] MEDS: MORPHINE SULFATE (*CRX) 4 MG/ML INJ IV PUSH (13:41)
--- NOTE | 2023-01-15 14:57 | WPDANESPN ---
Anes - Prog Note Post-Op Date/Time: 01/15/23 14:57 Cardiovascular status: normal Respiratory status: normal Airway patency: baseline Mental status: baseline Post-Op hydration status: normal Vital Signs: Last Vital Signs Temp 98.1 F 01/15/23 10:08 Pulse 68 01/15/23 10:08 Resp 18 01/15/23 10:08 BP 118/72 01/15/23 10:08 Pulse Ox 98 01/15/23 10:08 O2 Del Method Room Air 01/14/23 20:00 O2 Flow Rate 8 01/14/23 15:45 Pain Score (VAS): 0-1 I/O: Intake & Output 01/14/23 01/15/23 01/15/23 23:59 07:59 15:59 Intake Total 1670 2522 1070 Output Total 930 3200 Balance 740 -678 1070 Laboratory Tests 01/15/23 05:17 01/13/23 10:55 01/15/23 05:17 WBC 17.4 H RBC 3.50 L Hgb 11.5 L D Hct 33.8 L MCV 96.6 MCH 32.9 MCHC 34.0 RDW 11.9 Plt Count 238 MPV 9.7 Immature Gran % (Auto) 0.6 H Neut % (Auto) 85.2 H Lymph % (Auto) 8.0 L [place] % (Auto) 5.9 Eos % (Auto) 0.1 Baso % (Auto) 0.2 Lymph # (Auto) 1.39 [place] # (Auto) 1.0 H Eos # (Auto) 0.0 Baso # (Auto) 0.0 Abs Immat Gran (auto) 0.10 H Absolute Neuts (auto) 14.9 H Absolute Nucleated RBC 0.0 Nucleated RBC % 0.0 Post-procedural complaints: none Patient Feedback: Patient satisfied with anesthetic care.
[2023-01-15] MEDS: polyethylene glycoL 3350 17 GM POWD.PACK PO (15:41)
[2023-01-15] MEDS: FAMOTIDINE 20 MG TABLET 40 MG PO (18:15)
[2023-01-15] MEDS: DOCUSATE SODIUM 100 MG CAPSULE PO (20:19)
[2023-01-15] MEDS: SENNA/DOCUSATE SODIUM TABLET 2 TAB PO (20:19)
[2023-01-15] MEDS: SIMETHICONE 80 MG TAB.CHEW PO (20:21)
[2023-01-15] MEDS: traZODone HCL 50 MG TABLET 100 MG PO (23:10)
[2023-01-16] MEDS: ONDANSETRON INJ 4 MG/2 ML VIAL IV PUSH ×3 (01:54→14:16)
[2023-01-16] MEDS: HYDROcodone/acetaminophen (*CRX) 10-325 MG TABLET 1 TAB PO ×2 (01:54→08:39)
--- NOTE | 2023-01-16 03:27 | ECG_ITS ---
Measurements Intervals [place] Rate: 73 P: 66 [place]: 115 QRS: 26 QRSD: 73 T: -5 QT: 384 QTc: 425 Interpretive Statements SINUS RHYTHM WITH SHORT [place] INTERVAL BORDERLINE T WAVE ABNORMALITY- INFERIOR LEADS BASELINE ARTIFACT- I, II, III, AVR, AVL, AVF, V4 BORDERLINE ECG NO PREVIOUS ECG AVAILABLE FOR COMPARISON Electronically Signed On 01-16-2023 7:05:47 CDT by Augustine Mtz D.O.
[2023-01-16 03:28] VITALS: BP 103/61; PULSE 66; RESP 18; TEMP 36.8; O2SAT 100
[2023-01-16] MEDS: LORazepam (*CRX) 1 MG TABLET PO (04:09)
[2023-01-16] MEDS: FAMOTIDINE 20 MG TABLET 40 MG PO (08:33)
[2023-01-16] MEDS: metroNIDAZOLE 250 MG TABLET 500 MG PO (08:33)
[2023-01-16] MEDS: DOXYCYCLINE HYCLATE 100 MG TABLET PO (08:33)
[2023-01-16] MEDS: DOCUSATE SODIUM 100 MG CAPSULE PO (08:37)
[2023-01-16] MEDS: polyethylene glycoL 3350 17 GM POWD.PACK PO (08:37)
--- NOTE | 2023-01-16 10:00 | PM.GYNPNOP ---
MANAGER MOBILITY - A/P Assessment and plan (1) Status post abdominal hysterectomy and left salpingo-oophorectomy: Code(s): Z90.710 - Acquired absence of both cervix and uterus; Z90.721 - Acquired absence of ovaries, unilateral; Z90.79 - Acquired absence of other genital organ(s) Status: Acute Plan Postop day 1. Discuss surgery findings. Routine postop care. Postoperative Procedures: Procedures Operation Date: 01/14/23 14:00 Actual Procedure Side Surgeon p Diagnostic Laparoscopic, Converted to Laparotomy, Removal Of Left Tubo Ovarian Abscess, Bilateral Salpingectomy, Cystoscopy Bilateral Castro Buckley MD Time Spent With Patient Time: Total time spent is greater than 50% in coordination of care (as documented) at patient's floor/unit and/or counseling patient: Time with patient: less than 15 minutes MANAGER MOBILITY- PN:Subj Post-Op Subjective Date/time seen: 01/15/23 0830 Interval history: She is getting some relief with pain medicines. Has some gas pain. No leg pain. No chest pain. Discussed her surgery findings. Exam Const: General: no acute distress Resp: Effort & Inspection: normal respiratory effort Auscultation: clear to auscultation bilaterally Cardio: Rate: regular rate GI: Other: Positive bowel sounds. Visions intact no drainage appropriate tenderness Extrem: General: normal to inspection and no calf tenderness MANAGER MOBILITY - PN: Obj Data Vital Signs Vital Signs: Vital Signs - 24 hr 01/15/23 10:08 01/15/23 14:17 01/15/23 18:08 Temperature 98.1 F 98.2 F 98.0 F Pulse Rate 68 67 68 Respiratory Rate 18 16 16 Blood Pressure 118/72 101/45 L 132/72 Pulse Oximetry 98 99 100 Oxygen Delivery Fraction of Inspired Oxygen 01/15/23 20:08 01/15/23 22:22 01/15/23 20:00 Temperature 97.8 F Pulse Rate 60 60 Respiratory Rate 18 Blood Pressure 100/63 Pulse Oximetry 99 99 Oxygen Delivery Room Air Room Air Fraction of Inspired Oxygen 21 01/15/23 23:36 01/16/23 03:28 Temperature 98.9 F 98.3 F Pulse Rate 57 L 66 Respiratory Rate 17 18 Blood Pressure 105/68 103/61 Pulse Oximetry 99 100 Oxygen Delivery Fraction of Inspired Oxygen Intake/Output Intake/Output: Intake & Output 01/13/23 01/14/23 01/15/23 01/16/23 23:59 23:59 23:59 23:59 Intake Total 2030 1670 4332 300 Output Total 930 3200 Balance 2029 740 1132 300 Meds/Results Medications: Active Medications Generic Name Dose Route Start Last Admin Trade Name Freq PRN Reason Stop Dose Admin Acetaminophen 650 mg 01/13/23 11:43 01/13/23 19:09 Acetaminophen 325 Mg Tablet PO 650 mg Q4H PRN Administration Mild Pain (1-3) or Fever Hydrocodone Bitart/Acetaminophen 1 tab 01/14/23 15:08 01/15/23 02:24 Hydrocodone/Acetaminophen (*Crx) 5-325 Mg Tablet PO 1 tab Q3H PRN Administration Pain Rated 5 or Less Hydrocodone Bitart/Acetaminophen 1 tab 01/14/23 15:08 01/16/23 08:39 Hydrocodone/Acetaminophen (*Crx) 10-325 Mg Tablet PO 1 tab Q3H PRN Administration Pain Rated 6 or Greater Artificial Tears 1 drop 01/14/23 21:37 01/14/23 22:43 Artificial Tears Ophth Soln 15 Ml Bottle EACH EYE 1 drop QID PRN Administration Dry Eye(s) Calcium Carbonate 200 mg 01/15/23 18:02 Calcium Carbonate (Tums) 500 Mg (200 Mg Elemental) PO Q6H PRN Indigestion Docusate Sodium 100 mg 01/15/23 21:00 01/16/23 08:37 Docusate Sodium 100 Mg Capsule PO 100 mg Q12HR ASHLEY Administration Doxycycline Hyclate 100 mg 01/13/23 21:00 01/16/23 08:33 Doxycycline Hyclate 100 Mg Tablet PO 100 mg Q12HR ASHLEY Administration Famotidine 40 mg 01/15/23 18:01 01/16/23 08:33 Famotidine 20 Mg Tablet PO 40 mg DAILY ASHLEY Administration Cefotetan Disodium 1 gm/ 50 mls @ 100 mls/hr 01/14/23 18:00 01/16/23 09:56 Dextrose IVPB 100 mls/hr Q8H ASHLEY Administration Ibuprofen 600 mg 01/14/23 15:08 01/15/23 03:33 Ibuprofen 600 Mg Tablet PO 600 mg Q6H PRN
--- NOTE | 2023-01-16 10:03 | PM.GYNPNOP ---
KENNEL WORKER - A/P Assessment and plan (1) Status post abdominal hysterectomy and left salpingo-oophorectomy: Code(s): Z90.710 - Acquired absence of both cervix and uterus; Z90.721 - Acquired absence of ovaries, unilateral; Z90.79 - Acquired absence of other genital organ(s) Status: Acute Assessment and Plan: Postop day 2. She is having gas symptoms. Encourage ambulation. Will give something to help with the gas pain. If this gets better then anticipate discharge today. Postoperative Procedures: Procedures Operation Date: 01/14/23 14:00 Actual Procedure Side Surgeon p Diagnostic Laparoscopic, Converted to Laparotomy, Removal Of Left Tubo Ovarian Abscess, Bilateral Salpingectomy, Cystoscopy Bilateral Castro Buckley MD Time Spent With Patient Time: Total time spent is greater than 50% in coordination of care (as documented) at patient's floor/unit and/or counseling patient: Time with patient: less than 15 minutes KENNEL WORKER- PN:Subj Post-Op Subjective Date/time seen: 01/16/23 10:03 Interval history: She denies any chest pain or shortness of breath. She did have an anxiety attack last night after having some right upper to side pain. Her symptoms did improve with the antianxiety medicine. Her CT ruled out a PE. She has ambulated in the room. States pain is helped with the medications. She is gassy. She is passing gas. No bowel movement. She is tolerating regular food. Simethicone did help her gas pain. Exam Const: General: no acute distress Resp: Auscultation: clear to auscultation bilaterally Cardio: Rate: regular rate Rhythm: regular rhythm GI: Other: Incisions intact no drainage positive bowel sounds throughout mildly distended mild tenderness Extrem: General: normal to inspection (Mild swelling in hands arms nonpitting) and no calf tenderness KENNEL WORKER - PN: Obj Data Vital Signs Vital Signs: Vital Signs - 24 hr 01/15/23 10:08 01/15/23 14:17 01/15/23 18:08 Temperature 98.1 F 98.2 F 98.0 F Pulse Rate 68 67 68 Respiratory Rate 18 16 16 Blood Pressure 118/72 101/45 L 132/72 Pulse Oximetry 98 99 100 Oxygen Delivery Fraction of Inspired Oxygen 01/15/23 20:08 01/15/23 22:22 01/15/23 20:00 Temperature 97.8 F Pulse Rate 60 60 Respiratory Rate 18 Blood Pressure 100/63 Pulse Oximetry 99 99 Oxygen Delivery Room Air Room Air Fraction of Inspired Oxygen 21 01/15/23 23:36 01/16/23 03:28 Temperature 98.9 F 98.3 F Pulse Rate 57 L 66 Respiratory Rate 17 18 Blood Pressure 105/68 103/61 Pulse Oximetry 99 100 Oxygen Delivery Fraction of Inspired Oxygen Intake/Output Intake/Output: Intake & Output 01/13/23 01/14/23 01/15/23 01/16/23 23:59 23:59 23:59 23:59 Intake Total 2030 1670 4332 300 Output Total 930 3200 Balance 2029 740 1132 300 Meds/Results Medications: Active Medications Generic Name Dose Route Start Last Admin Trade Name Freq PRN Reason Stop Dose Admin Acetaminophen 650 mg 01/13/23 11:43 01/13/23 19:09 Acetaminophen 325 Mg Tablet PO 650 mg Q4H PRN Administration Mild Pain (1-3) or Fever Hydrocodone Bitart/Acetaminophen 1 tab 01/14/23 15:08 01/15/23 02:24 Hydrocodone/Acetaminophen (*Crx) 5-325 Mg Tablet PO 1 tab Q3H PRN Administration Pain Rated 5 or Less Hydrocodone Bitart/Acetaminophen 1 tab 01/14/23 15:08 01/16/23 08:39 Hydrocodone/Acetaminophen (*Crx) 10-325 Mg Tablet PO 1 tab Q3H PRN Administration Pain Rated 6 or Greater Artificial Tears 1 drop 01/14/23 21:37 01/14/23 22:43 Artificial Tears Ophth Soln 15 Ml Bottle EACH EYE 1 drop QID PRN Administration Dry Eye(s) Calcium Carbonate 200 mg 01/15/23 18:02 Calcium Carbonate (Tums) 500 Mg (200 Mg Elemental) PO Q6H PRN Indigestion Docusate Sodium 100 mg 01/15/23 21:00 01/16/23 08:37 Docusate Sodium 100 Mg Capsule PO 100 mg Q12HR ASHLEY Administration Doxycycline Hyclate 100 mg 01/13/23 21:00
[2023-01-16] MEDS: NICOTINE (*PBKC) 14 MG PATCH 1 PATCH TRANSDERM (11:29)
[2023-01-16 13:59] VITALS: BP 128/64; PULSE 84; RESP 18; TEMP 36.4; O2SAT 100
[2023-01-16] MEDS: HYDROcodone/acetaminophen (*CRX) 5-325 MG TABLET 1 TAB PO (14:16)
--- NOTE | 2023-01-16 14:19 | PCCCNOTE ---
On 01/16/23, the student, [Zoraida Saldivar], provided care and completed [facility] documentation on this patient. I have reviewed the student's documentation and agree with the findings.
--- NOTE | 2023-02-04 11:31 | PM.DS ---
DS: Admitting Diagnosis Discharge Date 01/16/23 Admitting Diagnosis Abdominal/pelvic pain Tubo ovarian abscess DS: Discharge Diagnosis Discharge Diagnosis (1) Pelvic pain: Code(s): R10.2 - Pelvic and perineal pain Status: Acute (2) Pelvic adhesions: Code(s): N73.6 - Female pelvic peritoneal adhesions (postinfective) Status: Acute DS: Summary Hospital Course Reason for hospitalization: abdominal pain Hospital Course: She was admitted from the emergency room due to recurrent pelvic pain. She had a history of possible tubo-ovarian abscess has been treated in the past with antibiotics symptoms got better and this cyst improved she return for increasing pain she was started on IV antibiotics and was recommended for surgery since the pain was not significantly different. On surgery there was no abscess but there is significant swelling of the left fallopian tube and ovary she did undergo an exploratory laparotomy initially there was a diagnostic laparoscopy but due to the degree of adhesions and exploratory laparotomy was performed and the left fallopian tube and ovary were removed she had previous bleed desired sterilization and she has satisfied parity and the right fallopian tube was removed. Postoperatively she did well. She did have an episode of what appeared to be an anxiety attack due to her symptoms she did get ruled out for pulmonary embolism. She did have any further symptoms. She had adequate pain control on postop day 2. She was tolerating regular food and ambulating and had positive flatus. Discharge precautions were discussed. She was sent home on pain medicines and antibiotics. Time Spent with Patient Time attestation: Total time spent providing and/or coordinating discharge services: Exam Narrative: Const: General: no acute distress Eyes: General: appearance normal, both eyes and all related structures Resp: Effort & Inspection: normal respiratory effort Auscultation: clear to auscultation bilaterally Cardio: Rate: regular rate Rhythm: regular rhythm GI: Other: Incision healing well. Positive bowel sounds appropriate tenderness no rebound Neuro: General: oriented to person, oriented to place and oriented to time Extrem: General: normal to inspection and no calf tenderness bilaterally Psych: Appearance: grossly normal DS: Data Data Completed and Pending Completed studies during hospitalization: Pending at discharge 01/14/23 14:16 Surgical [PTH] Routine Surgical [PTH] Routine Procedures/Treatments: IV antibiotics, diagnostic laparoscopy, exploratory laparotomy, removal of left fallopian tube and ovary and removal of right fallopian tube. Chest CTA. Discharge Plan Discharge Attending physician on discharge: Castro Buckley Consulting providers: Latrice Regalado; Augustine Mtz; Cong Clark V. Discharging Clinician: Castro Buckley Anticipated Discharge Date/Time: 01/16/23 16:27 Patient Disposition: Home, Self-Care Activity: may shower, no straining, no driving, follow weight bearing status and pelvic rest Diet: regular Discharge Instructions: Post laparotomy instructions. Patient Instructions: Antibiotic Form, Exploratory Laparotomy (DC) Stand Alone Forms: General Discharge Information Follow-up/Referrals: Castro Buckley MD [Physician] - 2 Weeks Discharge Medications: New hydrocodone-acetaminophen 5-325 mg Tablet 1 tablet PO Q3H PRN (Reason: Pain Rated 5 Or Less) Qty: 20 0RF Continued trazodone 100 mg tablet 100 mg PO DAILY famotidine 20 mg Tablet 20 mg PO DAILY Date of admission: 01/14/23 15:47 Primary Care Provider: Naina,Michael Flores Admitting Provider: Jacinta Quiles Attending physician on admission: Castro Buckley Condition: Stable
== END 2023-01-16 17:25 | disposition home or self-care (01) | DRG 743 ==
LOC: ANHED 10:11 → ANHOB2 12:21 → ANH2MED 01-14 17:28
PROVIDERS: Admitting Provider Obstetrics & Gynecology Gynecology; Emergency Provider Physician Assistant; PCP Family Medicine; Visit Provider Obstetrics & Gynecology
PROC: 0UJ84ZZ Inspection of Fallopian Tube, Percutaneous Endoscopic Approach (ICD-10-PCS; CPT 49320; principal; 2023-01-14 14:00)
DX: N70.93 Salpingitis and oophoritis, unspecified (principal); F17.210 Nicotine dependence, cigarettes, uncomplicated; Z53.31 Laparoscopic surgical procedure converted to open procedure; Z30.2 Encounter for sterilization
CPT/HCPCS: 36415; 71275; 74177; 80053; 81001; 81025; 83690; 85025; 88302; 88305; 93005; 96361; 96374; 96375; 96376; 99285; A9270; G0378; J1100; J1170; J1630; J1885; J2250; J2270; J2405; J2704; J2710; J3010; J7030; J7050; J7120; Q9967

== ENCOUNTER 2023-03-05 18:16 | Emergency (ER) | payer OTHER, SELFPAY ==
--- NOTE | 2023-03-05 18:24 | ED.SKABFB ---
HPI - Skin/Abscess/Foreign Bdy General Chief complaint: Skin/Abscess/Foreign Body Stated complaint: Cyst on lower back Time Seen by Provider: 03/05/23 18:19 Source: patient Mode of arrival: ambulatory Limitations: no limitations History of Present Illness HPI narrative: Patient is a 42-year-old female that presents with area of redness, warmth and hardening of skin to tailbone. Patient states it has been pea-sized cyst since 6 months ago and over the last 24 hours it has become inflamed. Denies any drainage from area, fever, chills, nausea, vomiting, diarrhea. Reports some redness around the area but has not started to streak. Has not take anything for symptoms. Has been on antibiotics recently. Related Data Home Medications Medication Instructions Recorded Confirmed trazodone 100 mg tablet 100 mg PO DAILY 05/30/22 03/05/23 Allergies Allergy/AdvReac Type Severity Reaction Status Date / Time No Known Allergies Allergy Mild Verified 02/01/23 11:43 Review of Systems Review of Systems: All systems reviewed & are unremarkable except as noted in HPI and below Constitutional: Constitutional: Denies body ache(s), Denies chills, Denies fatigue, Denies fever(s), Denies headache(s), Denies malaise and Denies weakness Eyes: Eyes: Denies blurry vision, Denies irritation and Denies loss of vision ENT: Denies otalgia, Denies headache(s), Denies nasal discharge, Denies sinus pain and Denies sore throat Cardiovascular: Cardiovascular: Denies chest pain, Denies irregular heart rhythm and Denies dyspnea Respiratory: Respiratory: Denies dyspnea Gastrointestinal: Gastrointestinal: Denies abdominal pain, Denies melena, Denies hematochezia, Denies diarrhea, Denies nausea and Denies vomiting Musculoskeletal: Musculoskeletal: Denies back pain, Denies myalgias and Denies arthralgias Integumentary/Breasts: Skin/Breast: Denies pruritus, Reports erythema, Denies rash, Reports skin pain and Reports skin swelling Neurologic: Denies headache(s), Denies loss of vision and Denies weakness Psychiatric: Psychiatric: Reports no additional psychiatric complaints Endocrine: Endocrine: Denies fatigue PMFSH Past Medical History Medical History Chronic GERD Surgical History Surgical History History of section History of hysterectomy 01/16/23 History of salpingoophorectomy Right 01/16/23 Family History Family History Father Hypertension Mother Hypertension Grandparent Family history of malignant neoplasm of male breast Social History Social History Smoking packs per day: 0.5 Smoking cigarettes per day: 10.0 Years smoked: 20 Smoking pack-years: 10.00 Smoking status: Current every day smoker Tobacco type: cigarettes Second hand tobacco smoke exposure: No Alcohol intake: never Substance use: never Lack of Transportation: No Lack of Food: Never True Current Housing: I Have Housing Concerned About Future Housing: No Difficulty Paying Gas/Electric Bills: No Difficulty Paying for Meds: No Currently Unemployed: No Education: Associate Degree Difficulty w/ Childcare or Family Care: No Spiritual care concerns: No Comments At time of signature, agree with nursing past medical, surgical, social and family history. There is no relevant family history pertinent to the presenting complaint. Exam Const: General: cooperative, healthy appearing, comfortable, no acute distress and well nourished Nutritional Appearance: well nourished Orientation/consciousness: patient oriented x3 Limitations: no limitations HENMT: Head: normal to inspection, normocephalic and atraumatic Ears: hearing grossly normal bilaterally and external ears normal Face/Nose/Sinus: Normal external nose p
[2023-03-05 18:28] VITALS: BP 103/77; PULSE 65; RESP 16; TEMP 36.7; O2SAT 99
== END 2023-03-05 19:00 | disposition home or self-care (01) ==
PROVIDERS: Emergency Provider Nurse Practitioner Family
DX: L03.317 Cellulitis of buttock (principal); F17.210 Nicotine dependence, cigarettes, uncomplicated; K21.9 Gastro-esophageal reflux disease without esophagitis
CPT/HCPCS: 99213; G0463

== ENCOUNTER 2023-03-10 09:08 | Emergency (ER) | payer OTHER, SELFPAY ==
--- NOTE | 2023-03-10 09:11 | ED.SKABFB ---
HPI - Skin/Abscess/Foreign Bdy General Chief complaint: Skin/Abscess/Foreign Body Stated complaint: Cyst on lower back Time Seen by Provider: 03/10/23 09:26 Source: patient and RN notes reviewed Mode of arrival: ambulatory Limitations: dementia History of Present Illness HPI narrative: 42-year-old female presents with concern of for an infected cyst on her lower back. Reports she was seen or 4 days ago and was put on clindamycin. Reports she has been on clindamycin for 4 days and is not getting better, is getting larger and more painful. She denies drainage from the area. complaint: abscess/boil Related Data Home Medications Medication Instructions Recorded Confirmed trazodone 100 mg tablet 100 mg PO DAILY 05/30/22 03/10/23 Allergies Allergy/AdvReac Type Severity Reaction Status Date / Time No Known Allergies Allergy Mild Verified 02/01/23 11:43 Review of Systems Review of Systems: CONSTITUTIONAL: Denies malaise, chills, sweats, or fever. EYES: Denies redness, or discharge. ENT: Denies rhinorrhea, congestion, swollen lips, swollen tongue CARDIOVASCULAR: Denies chest pain, palpitations, or edema. RESPIRATORY: Denies cough or dyspnea. GASTROINTESTINAL: Denies abdominal pain, nausea, vomiting SKIN: Reports redness, swelling pain on a cyst on her lower back. Denies purulent drainage, vesicles, bullae, numbness, pain beyond proportion MUSCULOSKELETAL: Denies joint pain or myalgia. NEUROLOGIC: Denies headache. All systems reviewed & are unremarkable except as noted in HPI and below PMFSH Past Medical History Medical History Chronic GERD Surgical History Surgical History History of section History of hysterectomy 01/16/23 History of salpingoophorectomy Right 01/16/23 Family History Family History Father Hypertension Mother Hypertension Grandparent Family history of malignant neoplasm of male breast Social History Social History Smoking packs per day: 0.5 Smoking cigarettes per day: 10.0 Years smoked: 20 Smoking pack-years: 10.00 Smoking status: Current every day smoker Tobacco type: cigarettes Second hand tobacco smoke exposure: No Alcohol intake: never Substance use: never Lack of Transportation: No Lack of Food: Never True Current Housing: I Have Housing Concerned About Future Housing: No Difficulty Paying Gas/Electric Bills: No Difficulty Paying for Meds: No Currently Unemployed: No Education: Associate Degree Difficulty w/ Childcare or Family Care: No Spiritual care concerns: No Comments At time of signature, agree with nursing past medical, surgical, social and family history. There is no relevant family history pertinent to the presenting complaint Exam Narrative: GENERAL: Well-appearing, well-nourished, and in no acute distress. HEAD: Normocephalic, atraumatic. EYES: PERRLA, conjunctivae clear ENT: Mucous membranes moist. NECK: Supple. No lymphadenopathy CHEST: Clear to auscultation. No respiratory distress. HEART: Regular rate and rhythm. SKIN: Warm, dry. Proximally 2.5 cm raised erythematous area on the lower back with surrounding palpable area of induration without erythema and warmth of a body 8 cm in diameter, to pinpoint white papules noted, no palpable fluctuation No tenderness, erythema, induration extending to the tailbone or pilonidal area. No vesicles, bullae, necrosis, ecchymosis, crepitus noted. NEURO: Alert and oriented x3. PSYCH: Normal mood and affect Course Course Emergency Course: Discussed benefits versus risks of trying to drain the abscess. Patient understands that we may not get anything with drainage given that I cannot feel any fluctuation. However given the marked increase in
[2023-03-10 09:16] VITALS: BP 109/60; PULSE 94; RESP 16; TEMP 36.7; O2SAT 99
== END 2023-03-10 10:05 | disposition home or self-care (01) ==
PROVIDERS: Emergency Provider Nurse Practitioner
DX: L02.212 Cutaneous abscess of back [any part, except buttock and flank] (principal); K21.9 Gastro-esophageal reflux disease without esophagitis; F17.210 Nicotine dependence, cigarettes, uncomplicated
CPT/HCPCS: 10060; 87070; 87075; 87076; 87185; 87205; 99212; G0463

== ENCOUNTER 2023-08-25 09:16 | Emergency (ER) | payer OTHER, SELFPAY ==
--- NOTE | 2023-08-25 09:25 | ED.GENADULT ---
HPI - General Adult General Chief complaint: Upper Respiratory Infection Stated complaint: Sinus Infection symptoms Source: patient, RN notes reviewed and old records reviewed Mode of arrival: ambulatory Limitations: no limitations History of Present Illness HPI narrative: 42-year-old female presents to [facility] with complaints cough, congestion, sinus pressure / pain, headache this started over a week ago. Patient states now is having green blood-tinged nasal drainage. Patient taking [id number] medications with no relief. Patient denies chest pain, shortness of breath, dizziness, weakness. Related Data Home Medications Medication Instructions Recorded Confirmed trazodone 100 mg tablet 100 mg PO DAILY 05/30/22 08/25/23 Allergies Allergy/AdvReac Type Severity Reaction Status Date / Time No Known Allergies Allergy Mild Verified 08/25/23 09:34 Review of Systems Constitutional: Constitutional: Reports no additional constitutional complaints, Denies body ache(s), Denies chills, Denies fatigue, Denies fever(s) and Reports headache(s) Eyes: Eyes: Reports no additional eye complaints and Denies blurry vision ENT: Reports system reviewed and no additional complaints, except as documented, Denies vertigo, Denies dizziness, Denies ear discharge, Reports otalgia, Denies facial pain, Reports headache(s), Reports nasal congestion, Denies nasal discharge, Reports sinus pain, Reports sinus pressure and Denies sore throat Cardiovascular: Cardiovascular: Reports no additional cardiovascular complaints, Denies chest pain, Denies chest pain at rest, Denies rapid heart rate and Denies dyspnea Respiratory: Respiratory: Reports no additional respiratory complaints, Reports chest congestion, Reports cough, Denies pain on inspiration, Denies pain with cough and Denies dyspnea Gastrointestinal: Gastrointestinal: Denies abdominal pain, Denies diarrhea, Denies nausea and Denies vomiting Integumentary/Breasts: Skin/Breast: Denies rash Neurologic: Reports system reviewed and no additional complaints, except as documented, Denies vertigo, Denies dizziness and Denies headache(s) Endocrine: Endocrine: Denies fatigue PMFSH Past Medical History Medical History Chronic GERD Surgical History Surgical History History of section Status post exploratory laparotomy (~01/14/23) Exp Lap, Exc of right fallopian tube/ovary, right Salpingectomy, Cystoscopy for Chronic PID. no endometriosis. Dr Buckley Family History Family History Father Hypertension Mother Hypertension Grandparent Family history of malignant neoplasm of male breast Social History Social History Smoking packs per day: 0.5 Smoking cigarettes per day: 10.0 Years smoked: 20 Smoking pack-years: 10.00 Smoking status: Current every day smoker Tobacco type: cigarettes Second hand tobacco smoke exposure: No Alcohol intake: never Substance use: never Lack of Transportation: No Lack of Food: Never True Current Housing: I Have Housing Concerned About Future Housing: No Difficulty Paying Gas/Electric Bills: No Difficulty Paying for Meds: No Currently Unemployed: No Education: Associate Degree Difficulty w/ Childcare or Family Care: No Living arrangements: with family Additional living arrangements comments: daughter Occupation/Education: occupation Gender identity (if verbalized by the patient): Female Sexual Orientation (if Verbalized by the Patient): Straight or Heterosexual Spiritual care concerns: No Comments At the time of my signature, I reviewed and agree with the nursing past medical, surgical, social, and family history. There is no relevant family history pertinent to the patient complai
[2023-08-25 09:26] VITALS: BP 108/64; PULSE 86; RESP 16; TEMP 36.6; O2SAT 99
== END 2023-08-25 09:41 | disposition home or self-care (01) ==
PROVIDERS: Emergency Provider Registered Nurse; PCP Family Medicine
DX: J01.90 Acute sinusitis, unspecified (principal); F17.210 Nicotine dependence, cigarettes, uncomplicated; K21.9 Gastro-esophageal reflux disease without esophagitis
CPT/HCPCS: 99213; G0463

== ENCOUNTER 2024-07-02 18:20 | Emergency (ER) | payer OTHER, SELFPAY ==
[2024-07-02 18:39] VITALS: BP 120/87; PULSE 65; RESP 16; TEMP 36.4; O2SAT 100
--- NOTE | 2024-07-02 18:46 | ED.EYEPROB ---
HPI - Eye Problem General Chief complaint: Eye Problems Stated complaint: Eye Pain and itching Time Seen by Provider: 07/02/24 18:46 Source: patient Mode of arrival: ambulatory Limitations: no limitations History of Present Illness HPI Narrative: Kimber is a 43-year-old female patient presenting to the clinic today with complaints eye pain and itching time 6 days. She reports has been using Cortisporin eyedrops without relief. Also using Pataday. States eyes are watering and draining some yellow discharge with crusting and matting. Related Data Home Medications ?Medication ?Instructions ?Recorded ?Confirmed ?Last Taken ?Type trazodone 100 mg tablet 100 mg PO DAILY 05/30/22 07/02/24 09/30/22 History Zyrtec 07/02/24 Unknown History contrave 07/02/24 Unknown History meclizine 07/02/24 Unknown History Allergies Allergy/AdvReac Type Severity Reaction Status Date / Time No Known Allergies Allergy Mild Verified 07/02/24 18:50 Review of Systems Review of Systems: Pertinent positives per HPI. Patient denies any fever, chills, rash, headache, visual changes, dizziness, cough, shortness of breath, chest pain, palpitations, nausea, vomiting, diarrhea, constipation, abdominal pain, or any urinary issues. FOR[facility], LAT[facility] Past Medical History Medical History Chronic GERD Surgical History Surgical History Status post exploratory laparotomy (~01/14/23) Exp Lap, Exc of right fallopian tube/ovary, right Salpingectomy, Cystoscopy for Chronic PID. no endometriosis. Dr Buckley History of section Family History Family History Father Hypertension Mother Hypertension Grandparent Family history of malignant neoplasm of male breast Social History Social History Smoking packs per day: 0.5 Smoking cigarettes per day: 10.0 Years smoked: 20 Smoking pack-years: 10.00 Smoking status: Current every day smoker Tobacco type: cigarettes Second hand tobacco smoke exposure: No Alcohol intake: never Substance use: never Lack of Transportation: No Lack of Food: Never True Current Housing: I Have Housing Concerned About Future Housing: No Difficulty Paying Gas/Electric Bills: No Difficulty Paying for Meds: No Currently Unemployed: No Education: Associate Degree Difficulty w/ Childcare or Family Care: No Living arrangements: with family Additional living arrangements comments: daughter Occupation/Education: occupation Gender identity (if verbalized by the patient): Female Sexual Orientation (if Verbalized by the Patient): Straight or Heterosexual Spiritual care concerns: No Comments At the time of my signature, I reviewed and agree with the nursing past medical, surgical, social, and family history. There is no relevant family history pertinent to the patient complaint. Exam Narrative: General: Well-developed, well nourished, in no apparent distress Head: Normocephalic, atraumatic Eyes: Pupils equally round and reactive to light bilaterally, EOM intact, bilateral sclera and conjunctive injected right greater the left, clear yellowish discharge, mild lid swelling, no obvious foreign body or stye Ears: TMs intact and clear, ear canals clear, no drainage, grossly hearing normal. Nose: Nares patent, no discharge, no inflammation, no sinus tenderness. Mouth: Oral pharynx without lesions or masses, good dentition, MMM. Neck: Supple, trachea midline, no enlargement of anterior or posterior cervical nodes, no thyroid masses or goiter palpable. Cardio: Regular rate and rhythm, s1 and s2 normal, no murmur appreciated. Resp: Clear to auscultation bilaterally, no rhonchi, rales, wheezing or rubs Course Course Emergency Course: Portions of this record may have been created with voice recognition software. Level of Care: Express Care Visit Vital Signs Vital signs: Vital Signs Temperature 36.4 C 07/02/24 18:39 Pulse Rate 65 07/02/24 18:39 Respiratory Rate 16 07/02/24 18:39 Blood Pressure 120/87 07/02/24 18:39 Pulse Oximetry 100 07/02/24 18:39 Temperature 36.4 C 07/02/24 18:39 Pulse Rate 65 07/02/24 18:39 Respiratory Rate 16 07/02/24 18:39 Blood Pressure 120/87 07/02/24 18:39 Pulse Oximetry 100 07/02/24 18:39 Vital signs reviewed MDM - Eye Problem MDM Narrative Medical decision making narrative: At the time of visit patient is resting comfortably on the exam table. Patient appears to be nontoxic. Plan: I suspect patient has conjunctivitis. Prescription for TobraDex was sent to the pharmacy. Supportive measures were discussed with the patient and they voiced understanding discharge instructions and agrees to treatment plan. Return precautions reviewed Differential Diagnosis Differential diagnosis: Likely corneal abrasion, conjunctivitis, acute iritis, hyphema, periorbital cellulitis, subconjunctival hemorrhage, glaucoma, corneal ulcer and ruptured globe Discharge Plan Discharge Clinical Impression: Conjunctivitis Qualifiers: Conjunctivitis type: acute Acute conjunctivitis type: unspecified Patient Disposition: Home, Self-Care Condition: Stable Instructions: Antibiotic Form, Conjunctivitis (ED) Additional Instructions: Conjunctivitis is considered contagious for 24 hours while on the antibiotic. Practice good hand washing techniques Avoid touching eyes Instill eyedrops as prescribed-TobraDex May use warm moist washcloth to help remove eye discharge If eyes are matted shut-do not pry eyes open-use a warm moist cloth to loosen matting and wipe matter away from eye May take Tylenol/Motrin as needed for pain or fever May take Benadryl as needed for itching Follow-up with your PCP in 3-5 days if symptoms persist or sooner if they worsen Go to the emergency room if you develop any fever that is not controlled by Tylenol or Motrin, loss of vision, eye pain, increase eye swelling,visual changes, headache, confusion, lethargy, weakness, chest pain, or shortness of breath. Patient Language: Yakut Prescriptions: New Tobradex ST 0.3-0.05 % drops,suspension 1 drp EACH EYE Q6H 7 Days Qty: 5 0RF No Action amoxicillin-pot clavulanate 875-125 mg tablet 1 tablet PO Q12H Qty: 20 0RF Zyrtec meclizine contrave trazodone 100 mg tablet 100 mg PO DAILY Follow-up/Referrals: Jason,MD Milton [Primary Care Provider] - Time of Disposition: 18:53 Quality NIHSS Nursing Documentation ED NIHSS nursing documentation: reviewed/agree
== END 2024-07-02 18:58 | disposition home or self-care (01) ==
PROVIDERS: Emergency Provider Nurse Practitioner Family; PCP Internal Medicine
DX: H10.9 Unspecified conjunctivitis (principal); F17.210 Nicotine dependence, cigarettes, uncomplicated; K21.9 Gastro-esophageal reflux disease without esophagitis
CPT/HCPCS: 99213; G0463